=== PATIENT | male | born 1955 | race Caucasian/White ===

== ENCOUNTER → 2021-12-10 10:08 | Outpatient (CLI) | payer MEDICARE, OTHER, SELFPAY ==
--- NOTE | 2021-12-10 | CA_ITS ---
APPROVED REPORT Exam: Exercise Treadmill Technologist: Oumou Teague Ht: 6 ft 1 in Wt: 190 lbs BSA: 2.11 m2 HR: 79 bpm BP: 203/83 mmHg Indications: Palpitations, ABNORMAL EKG Stress Test Details Test: Abhay HR Resting HR: 79 bpm Max Heart Rate (APMHR): 152.125185 bpm Max HR Achieved: 160 bpm Target HR (85% APMHR): 129.652834 bpm % of APMHR: 105.26 Recovery HR: 87 bpm BP Resting BP: 203.0/83.0 mmHg Max BP: 218.0/86.0 mmHg Recovery BP: 166.0/85.0 mmHg ECG Resting ECG: Normal sinus rhythm, PVCs (frequent) Clinical Exercise duration: 08:00 min Highest Stage Achieved: Exercise capacity: 10.1 METs Stress ECG Conclusion Patient exercised 8:00 on Abhay Protocol. Test stopped due to shortness of air, hypertension. Symptoms: No chest pain. Arrhythmias/Ectopy: Frequent multifocal PVCs, numerous couplets, occasional triplet, one 7 beat run of ventricular tachycardia. ST-T Changes: Allowing for motion artifact and frequent ventricular ectopy, the ST response to exercise appears within normal. Conclusion: Frequent multifocal ventricular ectopy with one 7 beat run of ventricular tachycardia. Myoview images reported separately. Test Summary REST . . . . . . . Sitting REST . . . . . . . Standing REST 04:55 0.0 0.0 79 . 203/ 83 . . Stage 1 01:00 10.0 1.7 91 . . . . Stage 1 02:00 10.0 1.7 93 . . . . Stage 1 03:00 10.0 1.7 107 . 210/ 85 . . Stage 2 01:00 12.0 2.5 108 . . . . Stage 2 02:00 12.0 2.5 123 . . . . Stage 2 . . . . . . . Myoview Injected Stage 2 03:00 12.0 2.5 127 . 218/ 86 . . Stage 3 01:00 14.0 3.4 141 . . . . Stage 3 02:00 14.0 3.4 138 . . . Stop exercise at 08:00 RECOVERY 01:00 0.0 0.0 118 . 215/ 75 . . RECOVERY 02:00 0.0 0.0 80 . 215/ 75 . . RECOVERY 03:00 0.0 0.0 88 . 215/ 75 . . RECOVERY 04:00 0.0 0.0 80 . 180/ 93 . . RECOVERY 05:00 0.0 0.0 88 . 180/ 93 . . RECOVERY 06:00 0.0 0.0 83 . 180/ 93 . . RECOVERY 07:00 0.0 0.0 79 . 191/ 98 . . RECOVERY 07:42 0.0 0.0 74 . 166/ 85 . . Electronically signed by : Eric Garrett MD 12/10/2021 20:44:45
--- NOTE | 2021-12-10 | CA_ITS ---
APPROVED REPORT EXAM: Comprehensive 2D, Doppler, and color-flow Echocardiogram Automotive Designer: Vannesa High CRT Ht: 6 ft 1 in Wt: 190lbs BSA: 2.11 BP: 158/95 mmHg Indications: Abnormal ECG, Chest Pain, Palpitations 2D Dimensions LVOT 2.17 cm (M/F) 1.5-2.5 LA Volume 48.80 mL LA Volume Index 23.10 mL/m2 (M/F) 16-34 M-Mode Dimensions RVDd 3.34 cm (0.9-2.6) LA Diam 3.91 cm (1.9-4.0) LVDd 5.06 cm (3.5-5.7) Ao Diam 4.00 cm (2.0-3.7) LVDs 3.19 cm (3.5-5.7) IVSd 1.56 cm (0.6-1.1) PWd 1.16 cm (0.6-1.1) EF (Teich) 66.60% FS 37.00% EDV (Teich) 121.60 mL TAPSE 2.33 (<1.7) ESV (Teich) 40.60 mL LV Diastology E Decel Time 197.00 (160-240 msec) E/A Ratio 0.79 MED E' 7.70 (< 7 cm/sec) MED A' 14.00 cm/s E'/MED E' Ratio 7.34 (>14) LAT E' 11.20 (<10 cm/sec) LAT A' 13.10 cm/s E/LAT E' Ratio 5.04 (>14) Aortic Valve AO Peak GR. 5.90 mmHg Mitral Valve MV E Max Malcolm. 56.00 (40-130 cm/s) MV A Velocity 72.00 (40-130 cm/s) E/A Ratio 0.79 MV Decel. Time 197.00 (160-240 ms) MV PHT 58.00 ms Pulmonary Valve PV Peak Velocity 175.00 (50-150 cm/s) Tricuspid Valve TR P. Velocity 314.00 cm/s RAP Estimate 10.00 mmHg RVSP 49.50 mmHg Left Ventricle Left atrium is mildly enlarged, left ventricle is normal size, mild concentric left ventricular hypertrophy, visually estimated ejection fraction 55% with no regional wall motion abnormality, grade 1 diastolic dysfunction seen without tissue Doppler evidence of raise left atrial pressure. Right Ventricle Right atrium and right ventricle are normal size and contractility. Aortic Valve Aortic valve is minimally thickened and fibrosed. There is no aortic stenosis or aortic insufficiency. Mitral Valve Mitral valve grossly normal, there is trace mitral regurgitation. Tricuspid Valve Tricuspid grossly normal, there is trace tricuspid regurgitation. Pulmonic Valve Pulmonic valve is poorly visualized. Great Vessels Aortic root is normal size. Inferior vena cava is poorly visualized. Pericardium No significant pericardial effusion noted. Conclusion 1. Mildly enlarged left atrium, normal left ventricular size, mild concentric left ventricular hypertrophy, visually estimated ejection fraction 55% with no regional wall motion abnormality, grade 1 diastolic dysfunction without tissue Doppler evidence of raise left atrial pressure. 2. Trace mitral and tricuspid regurgitation. 3. No significant pericardial effusion noted. 4. Inferior vena cava is poorly visualized. Electronically signed by : Eric Garrett MD 12/10/2021 20:24:32
--- NOTE | 2021-12-10 10:59 | NM_ITS ---
APPROVED REPORT Exam: Nuclear Stress Test Indication: Abnormal EKG, Chest pain, Palpitations, HTN Patient Location: Outpatient Stress Tech: Oumou Teague NM Tech:Mago Holden, ARRT, RT (R)(N) Ht: 6 ft 1 in Wt: 190 lbs HR: 79 bpm BP: 203/83 mmHg BSA: 2.11 m2 BMI: 25.0 History: Abnormal EKG, Chest pain, Palpitations, HTN Procedure: Patient exercised on Abhay protocol 8:00 minutes and sec, resting heart rate 79 bpm, resting blood pressure 203/83 mmHg, with exercise maximum heart rate achived was 160 bpm which is 105 % of the maximum predicted heart rate and blood pressure was 218/86 mmHg. Test was stopped due to SOA. Patient denied any complaint of chest pain. Patient has good exercise capacity, achieved 10.1 METs of workload on treadmill, the blood pressure response to exercise was Hypertensive. Electrocardiogram Resting electrocardiogram showed sinus rhythm, with exercise there is less than 1.[address] segment depression noted from the baseline EKG. The EKG portion of the exercise Myoview is negative for ischemia, however during the study 7 beat of nonsustained ventricular tachycardia was also seen. Cardiac Stress and Resting SPECT Images: Cardiac Stress and Resting SPECT images were obtained using technetium 99m Myoview 32.7 mCi stress and 10.43 mCi at rest. Gated SPECT for analysis of segmental wall motion and calculation of the ejection fraction also done. Prone images were also obtained. Cardiac stress and rest SPECT images show moderate sized area of fixed defect involving the inferior wall, likely secondary to nontransmural myocardial scarring, no significant reversible ischemia seen, computer derived ejection fraction is 51% with moderate inferior wall hypokinesis, right ventricle is mildly enlarged with normal contractility. Conclusion: 1. The EKG portion of the exercise Myoview is negative for ischemia, patient good exercise capacity achieved 10.1 METs of workload treadmill, the blood pressure response to exercise was hypertensive, there was no exercise-induced chest discomfort. 2. Scintigraphic evidence of nontransmural myocardial scarring involving the inferior wall, computer derived ejection fraction 51% with segmental wall motion abnormality described above, right ventricle is mildly enlarged with normal contractility. 3. Abnormal exercise Myoview study. Electronically signed by : Eric Garrett MD 12/10/2021 21:06:17
== END ==
PROVIDERS: PCP Family Medicine; Visit Provider Family Medicine
DX: R55 Syncope and collapse (principal); I49.3 Ventricular premature depolarization; R00.2 Palpitations; R94.31 Abnormal electrocardiogram [ECG] [EKG]
CPT/HCPCS: 78452; 93017; 93306; A9502

== ENCOUNTER → 2021-12-23 08:03 | Outpatient (CLI) | payer MEDICARE, OTHER, SELFPAY ==
[2021-12-23 09:14] LABS: Basophils # 0.1 K/mm3 (0-0.2); Basophils % 1.3 % (0.1-2.0); Eosinophils # 0.3 K/mm3 (0.0-0.4); Eosinophils % 2.3 % (0.1-12.0); Hematocrit 46.9 % (42.0-52.0); Hemoglobin 15.3 g/dL (14.1-18.0); Lymphocytes % 36.7 % (10-50); Mean Corpuscular HGB Conc 32.6 g/dL (31.8-35.4); Mean Corpuscular Hemoglobin 30.9 pg (27.0-31.2); Mean Corpuscular Volume 94.7 fl (80-94); Monocytes # 0.7 K/mm3 (0.1-1.0); Monocytes % 6.6 % (1.7-9.3); Neutrophils # 5.8 K/mm3 (1.8-7.8); Neutrophils % 53.1 % (37.0-80.0); Platelet Count 349 K/mm3 (142-424); Red Blood Count 4.96 M/mm3 (4.60-6.20); Red Cell Distribution Width 13.7 % (11.5-17.5)
[2021-12-23 09:55] LABS: Chloride 99 mmol/L (98-107); Potassium 4.1 mmoL/L (3.5-5.1); Sodium 138 mmol/L (136-145)
[2021-12-23 09:58] LABS: Anion Gap 13.1 mEq/L (5-15); Blood Urea Nitrogen 11 mg/dl (9-20); Carbon Dioxide 30 mmol/L (22.0-30.0); Estimated Glomerular Filt Rate 96 ml/min (>60); GFR (African American) 116 ML/MIN (>60)
[2021-12-23 09:59] LABS: Calcium 9.3 mg/dl (8.4-10.2); Glucose 117 mg/dl (74-100)
== END ==
PROVIDERS: PCP Family Medicine; Visit Provider Nurse Practitioner Family
DX: E78.5 Hyperlipidemia, unspecified (principal); I10 Essential (primary) hypertension; I20.8 Other forms of angina pectoris; R06.00 Dyspnea, unspecified; R94.31 Abnormal electrocardiogram [ECG] [EKG]; R94.39 Abnormal result of other cardiovascular function study; I63.9 Cerebral infarction, unspecified
CPT/HCPCS: 36415; 80048; 85025; C9803; U0003; U0005

== ENCOUNTER 2021-12-24 08:40 | Day surgery (SDC) | payer MEDICARE, OTHER, SELFPAY ==
[2021-12-24] VITALS (13 sets, daily range): BP systolic 112–193; BP diastolic 67–105; PULSE 56–89; RESP 18; TEMP 36.9; O2SAT 93–98; BMI 24.0
--- NOTE | 2021-12-24 07:10 | IR_ITS ---
APPROVED REPORT Patient Location: Outpatient Glass Designer: JOSÉ Christy RT (R) PROCEDURES Left heart catheterization Left ventriculogram Selective coronary angiogram Drug-eluting stent deployment to the proximal LAD INDICATION Angina pectoris, Coronary artery disease, High risk abnormal Myoview Informed consent was obtained prior to the procedure. COMPLICATIONS None Estimated Blood Loss: Less than 10 mls TECHNIQUE One percent lidocaine used to anesthetize the right anterior aspect of the wrist. The right radial artery was accessed via the Seldinger technique. A 6 Salvadorean sheath was placed in the right radial artery. 2.5 mg of verapamil, 800 mcg of nitroglycerin, 1mg Lidocaine and 5000 U Heparin were given through the arterial sheath. The PAPA catheter was also used to perform left heart catheterization, left ventriculogram and selective coronary angiogram. At the end the diagnostic angiogram therapeutic heparin was administered giving a therapeutic ACT and a Choice PT extra-support wire was placed distally in the LAD. A 3.5 x 34 mm resolute Shawn stent was deployed at 16 elías reducing the stenosis. A 4 mm x 8 mm balloon was then placed in the proximal portion of the stent and deployed at 22 elías to post dilate. FEDERICO-3 flow was present before and after the procedure. There was jailing of the first diagonal artery however this was still accompanied by FEDERICO-3 flow therefore the apparatus was removed the sheath was removed and hemostasis was achieved using TR banding patient was transferred to the postop putting her stable condition ANGIOGRAPHIC RESULTS The left main artery Normal The left anterior descending artery Proximal 60% stenosis followed by additional proximal 70% stenosis. There is a large first diagonal artery which originates the high proximal LAD which is free of disease however after stenting there was greater than 90% jailing still accompanied by FEDERICO-3 flow The circumflex artery Is large and codominant with mild diffuse 10% luminal irregularities The right coronary artery Has proximal and mid vessel diffuse 30 to 40% stenoses with a distal 30% stenosis The ENRIQUEZ ventriculogram reveals Preserved at 55% The left ventricular end-diastolic pressure 10 mmHg IMPRESSION Severe proximal LAD disease which correlated with high risk abnormal Myoview Successful stenting of proximal LAD severe tandem lesions reduced to 0% with 1 drug-eluting stent Preserved ejection fraction Normal left ventricular end-diastolic pressure Angiographic jailing of the first diagonal artery accompanied by FEDERICO-3 flow PLAN 1. Dual antiplatelet therapy 2. LDL less than 55 3. Avoidance of tobacco products 4. Cardiac rehabilitation 5. Risk factor modification 6. The first diagonal artery will be managed medically given the FEDERICO-3 flow. Should patient develop recalcitrant angina pectoris refractory to antianginal medications only then what I consider bifurcating this lesion. Typically these lesions remain open and do not require any form of instrumentation Electronically signed by : Darrius Brady MD 12/24/2021 10:18:11
[2021-12-24 11:36] LABS: CATHL Activated Clotting Time > 400 SEC (74-125)
--- NOTE | 2021-12-24 13:03 | HMH.PHACLD ---
Migel Fraga has received discharge medication counseling on the following medications: ASPIRIN METOPROLOL ROSUVASTATIN BRILINTA LISINOPRIL PATIENT VERBALIZED UNDERSTANDING AND HAD NO QUESTIONS AT THIS TIME. -ANASTASIA LAWRENCE, MOOKIED
== END 2021-12-24 13:57 | disposition home or self-care (01) ==
LOC: CATHLAB 08:41
PROVIDERS: PCP Family Medicine; Visit Provider Internal Medicine
DX: E78.5 Hyperlipidemia, unspecified (principal); R06.00 Dyspnea, unspecified; R94.31 Abnormal electrocardiogram [ECG] [EKG]; R94.39 Abnormal result of other cardiovascular function study; Z79.899 Other long term (current) drug therapy; I25.118 Atherosclerotic heart disease of native coronary artery with other forms of angina pectoris; I10 Essential (primary) hypertension
CPT/HCPCS: 85347; 92928; 93458; 99152; C1725; C1769; C1876; C9600; J1644; J2405; Q9967

== ENCOUNTER 2022-01-09 08:29 | Outpatient (RCR) | payer MEDICARE, OTHER, SELFPAY | END 2022-02-11 14:32 | disposition home or self-care (01) | LOC: PT 08:29 | PROVIDERS: Visit Provider Internal Medicine | DX: I25.10 Atherosclerotic heart disease of native coronary artery without angina pectoris (principal); Z95.5 Presence of coronary angioplasty implant and graft | CPT/HCPCS: 93798 ==

== ENCOUNTER → 2022-07-28 10:36 | Outpatient (CLI) | payer MEDICARE, OTHER, SELFPAY ==
[2022-07-28 11:04] LABS: Basophils # 0.2 K/mm3 (0-0.2); Basophils % 1.9 % (0.1-2.0); Eosinophils # 0.2 K/mm3 (0.0-0.4); Eosinophils % 1.9 % (0.1-12.0); Hematocrit 45.7 % (42.0-52.0); Hemoglobin 14.8 g/dL (14.1-18.0); Lymphocytes # 3.7 K/mm3 (0.7-4.5); Lymphocytes % 36.9 % (10-50); Mean Corpuscular HGB Conc 32.5 g/dL (31.8-35.4); Mean Corpuscular Hemoglobin 30.9 pg (27.0-31.2); Mean Corpuscular Volume 95.2 fl (80-94); Mean Platelet Volume 8.4 fl (7.4-10.4); Monocytes # 0.5 K/mm3 (0.1-1.0); Monocytes % 5.3 % (1.7-9.3); Neutrophils # 5.4 K/mm3 (1.8-7.8); Platelet Count 317 K/mm3 (142-424); Red Cell Distribution Width 13.7 % (11.5-17.5); White Blood Count 10.1 K/mm3 (4.8-10.8)
[2022-07-28 11:30] LABS: Chloride 104 mmol/L (98-107); Sodium 142 mmol/L (136-145)
[2022-07-28 11:31] LABS: Potassium 4.1 mmoL/L (3.5-5.1)
[2022-07-28 11:33] LABS: Alanine Aminotransferase 21 U/L (12-78); Albumin Level 4.4 g/dl (3.5-5.0); Albumin/Globulin Ratio 1.2 (1.1-1.8); Alkaline Phosphatase 84 U/L (38-126); Anion Gap 11.1 mEq/L (5-15); Aspartate Amino Transferase 37 U/L (17-59); Bilirubin,Total 0.3 mg/dl (0.2-1.3); Blood Urea Nitrogen 12 mg/dl (9-20); Carbon Dioxide 31 mmol/L (22.0-30.0); Cholesterol 173 mg/dl (140-200); Estimated Glomerular Filt Rate 96 ml/min (>60); GFR (African American) 116 ML/MIN (>60); Globulin 3.6 g/dL (1.3-3.2); Triglycerides 100 mg/dl (30-150); VLDL Cholesterol 20 mg/dL (0-40)
[2022-07-28 11:34] LABS: Calcium 8.6 mg/dl (8.4-10.2); Chol/HDL Ratio 3.8 (1-3.5); Glucose 109 mg/dl (74-100); HDL Cholesterol 46 mg/dl (40-60)
[2022-07-28 11:44] LABS: Direct LDL Cholesterol 86.79 mg/dL (100-129)
[2022-07-28 12:05] LABS: Thyroid Stimulating Hormone 1.77 uIU/mL (0.465-4.68)
[2022-07-28 12:20] LABS: Uric Acid 4.4 mg/dl (3.5-8.5)
[2022-07-28 12:52] LABS: Prostate Specific Ag Screen 1.3 ng/ml (0.0-4.0)
== END ==
PROVIDERS: PCP Family Medicine; Visit Provider Family Medicine
DX: I10 Essential (primary) hypertension (principal); I25.10 Atherosclerotic heart disease of native coronary artery without angina pectoris; E78.2 Mixed hyperlipidemia; Z12.5 Encounter for screening for malignant neoplasm of prostate
CPT/HCPCS: 36415; 80053; 80061; 84443; 84550; 85025; G0103

== ENCOUNTER → 2022-08-26 09:06 | Outpatient (POV) | payer MEDICARE, OTHER, SELFPAY | PROVIDERS: Visit Provider Dermatology | DX: Z00.00 Encounter for general adult medical examination without abnormal findings (principal) ==

== ENCOUNTER → 2023-04-07 08:16 | Outpatient (POV) | payer MEDICARE, OTHER, SELFPAY | PROVIDERS: Visit Provider Dermatology | DX: Z00.00 Encounter for general adult medical examination without abnormal findings (principal) ==

== ENCOUNTER → 2023-07-21 08:41 | Outpatient (POV) | payer MEDICARE, OTHER, SELFPAY | PROVIDERS: Visit Provider Dermatology | DX: Z00.00 Encounter for general adult medical examination without abnormal findings (principal) ==

== ENCOUNTER → 2023-10-19 02:00 | Outpatient (CLI) | payer MEDICARE, OTHER, SELFPAY ==
[2023-10-19 18:01] LABS: Basophils # 0.1 K/mm3 (0-0.2); Basophils % 0.5 % (0.1-2.0); Eosinophils # 0.1 K/mm3 (0.0-0.4); Eosinophils % 1.2 % (0.1-12.0); Hemoglobin 16.1 g/dL (14.1-18.0); Lymphocytes # 2.5 K/mm3 (0.7-4.5); Lymphocytes % 28.2 % (10-50); Mean Corpuscular HGB Conc 33.5 g/dL (31.8-35.4); Mean Corpuscular Hemoglobin 31.5 pg (27.0-31.2); Mean Corpuscular Volume 94.1 fl (80-94); Mean Platelet Volume 9.7 fl (7.4-10.4); Monocytes # 0.7 K/mm3 (0.1-1.0); Monocytes % 7.7 % (1.7-9.3); Neutrophils # 5.5 K/mm3 (1.8-7.8); Neutrophils % 62.4 % (37.0-80.0); Platelet Count 302 K/mm3 (142-424); Red Blood Count 5.11 M/mm3 (4.60-6.20); Red Cell Distribution Width 13.3 % (11.5-17.5); White Blood Count 8.7 K/mm3 (4.8-10.8)
[2023-10-19 18:41] LABS: Alanine Aminotransferase 21 U/L (12-78); Albumin Level 4.4 g/dl (3.5-5.0); Alkaline Phosphatase 93 U/L (38-126); Anion Gap 9.1 mEq/L (5-15); Aspartate Amino Transferase 32 U/L (17-59); Bilirubin,Total 0.3 mg/dl (0.2-1.3); Blood Urea Nitrogen 11 mg/dl (9-20); Calcium 8.7 mg/dl (8.4-10.2); Carbon Dioxide 30 mmol/L (22.0-30.0); Chloride 103 mmol/L (98-107); Chol/HDL Ratio 6.8 (1-3.5); Cholesterol 230 mg/dl (140-200); Estimated Glomerular Filt Rate 83 ml/min (>60); GFR (African American) 101 ML/MIN (>60); Globulin 4.3 g/dL (1.3-3.2); Glucose 107 mg/dl (74-100); HDL Cholesterol 34 mg/dl (40-60); Microalbumin < 6.000 mg/L (0-16.7); Potassium 4.1 mmoL/L (3.5-5.1); Sodium 138 mmol/L (136-145); Total Protein,Serum 8.7 g/dl (6.3-8.2); Triglycerides 113 mg/dl (30-150); VLDL Cholesterol 23 mg/dL (0-40)
[2023-10-19 19:01] LABS: Creatinine,Urine Random 52 mg/dL (Not Estab.)
[2023-10-19 19:11] LABS: Thyroid Stimulating Hormone 3.03 uIU/mL (0.465-4.68)
== END ==
PROVIDERS: PCP Nurse Practitioner; Visit Provider Nurse Practitioner
DX: E78.5 Hyperlipidemia, unspecified (principal); I10 Essential (primary) hypertension; R06.00 Dyspnea, unspecified
CPT/HCPCS: 80053; 80061; 82043; 82570; 84443; 85025

== ENCOUNTER 2024-02-16 20:06 | Outpatient (CLI) | payer MEDICARE, OTHER, SELFPAY ==
[2024-02-16 18:46] LABS: Alanine Aminotransferase 20 U/L (12-78); Albumin Level 4.3 g/dl (3.5-5.0); Albumin/Globulin Ratio 1.1 (1.1-1.8); Alkaline Phosphatase 89 U/L (38-126); Anion Gap 10.2 mEq/L (5-15); Aspartate Amino Transferase 41 U/L (17-59); Bilirubin,Total 0.4 mg/dl (0.2-1.3); Blood Urea Nitrogen 14 mg/dl (9-20); Calcium 9.3 mg/dl (8.4-10.2); Carbon Dioxide 29 mmol/L (22.0-30.0); Chloride 105 mmol/L (98-107); Chol/HDL Ratio 8.3 (1-3.5); Cholesterol 264 mg/dl (140-200); Estimated Glomerular Filt Rate 83 ml/min (>60); GFR (African American) 101 ML/MIN (>60); Globulin 3.9 g/dL (1.3-3.2); Glucose 129 mg/dl (74-100); HDL Cholesterol 32 mg/dl (40-60); Potassium 4.2 mmoL/L (3.5-5.1); Sodium 140 mmol/L (136-145); Total Protein,Serum 8.2 g/dl (6.3-8.2); Triglycerides 134 mg/dl (30-150); VLDL Cholesterol 27 mg/dL (0-40)
[2024-02-16 18:57] LABS: Direct LDL Cholesterol 165.04 mg/dL (100-129)
[2024-02-16 19:17] LABS: Prostate Specific Ag Screen 1.5 ng/ml (0.0-4.0)
[2024-02-16 19:39] LABS: Hemoglobin A1C 5.5 % (4.0-6.0)
== END 2024-02-16 23:59 ==
LOC: LAB.DROPOF 20:06
PROVIDERS: PCP Nurse Practitioner; Visit Provider Nurse Practitioner
DX: Z12.5 Encounter for screening for malignant neoplasm of prostate (principal); I10 Essential (primary) hypertension; R73.01 Impaired fasting glucose; E78.2 Mixed hyperlipidemia; Z78.9 Other specified health status; Z79.899 Other long term (current) drug therapy
CPT/HCPCS: 80053; 80061; 83036; G0103

== ENCOUNTER 2024-04-14 08:56 | Observation (INO) | payer MEDICARE, OTHER, SELFPAY ==
[2024-04-14 09:00] VITALS: BP 157/96; PULSE 87; RESP 20; TEMP 36.8; O2SAT 95; BMI 32.1
[2024-04-14 09:01] VITALS: BP 167/107; PULSE 76; O2SAT 96
--- NOTE | 2024-04-14 09:01 | ECG_ITS ---
APPROVED REPORT Exam: Resting ECG HR:149 bpm ECG Measurements Heart Rate 149 AXES QRSd 98 QRS -74 QT 301 T 74 QTc 386 Conclusion ATRIAL FLUTTER/TACHYCARDIA WITH RAPID VENTRICULAR RESPONSE PATTERN CONSISTENT WITH PULMONARY DISEASE Nonspecific ST/T wave changes Electronically signed by : GRETA JIMENEZ, 04/14/2024 16:08:59
--- NOTE | 2024-04-14 09:05 | XR_ITS ---
FINAL REPORT CLINICAL HISTORY: tachycardia FINDINGS: A single view of the chest was obtained. The heart is normal in size. The mediastinum is unremarkable. Mild chronic changes are seen at the lung bases. There is no acute pulmonary abnormality. There is no pleural effusion. There is no pneumothorax. There is no acute osseous abnormality. IMPRESSION: No acute cardiopulmonary process. Reviewed, Interpreted and Dictated by Evaristo Bautista MD Transcribed by Abimbola Ricks Authenticated and [facility]
[2024-04-14 09:16] LABS: Basophils # 0.1 K/mm3 (0-0.2); Eosinophils # 0.1 K/mm3 (0.0-0.4); Eosinophils % 1.4 % (0.1-12.0); Hematocrit 49.5 % (42.0-52.0); Hemoglobin 16.4 g/dL (14.1-18.0); Lymphocytes # 2.8 K/mm3 (0.7-4.5); Lymphocytes % 34.7 % (10-50); Mean Corpuscular HGB Conc 33.2 g/dL (31.8-35.4); Mean Corpuscular Hemoglobin 31.4 pg (27.0-31.2); Mean Corpuscular Volume 94.7 fl (80-94); Mean Platelet Volume 7.9 fl (7.4-10.4); Monocytes # 0.5 K/mm3 (0.1-1.0); Monocytes % 5.6 % (1.7-9.3); Neutrophils # 4.7 K/mm3 (1.8-7.8); Neutrophils % 57.3 % (37.0-80.0); Platelet Count 327 K/mm3 (142-424); Red Blood Count 5.23 M/mm3 (4.60-6.20); White Blood Count 8.2 K/mm3 (4.8-10.8)
--- NOTE | 2024-04-14 09:18 | HMH.EDGENADL ---
Discharge Plan Disposition Patient Disposition: Admitted Clinical Impressions Clinical Impression: Atrial flutter with rapid ventricular response Discharge ED Provider: [facility] Adult HPI General Chief complaint: Arrhythmia/Palpitations Stated complaint: Elevated Heart Rate-Sent by [employer] [facility] Time Seen by Provider: 04/14/24 09:02 History of Present Illness HPI narrative: This patient is a 68-year-old male with a history of hypertension, hyperlipidemia, CAD, and anxiety presenting to the emergency department for evaluation from cardiology clinic with concern for high heart rate. According to the patient, he had been in his usual state of health until last few days, when he started experiencing a sinus infection. He notes that he started taking [id number] nasal spray and a pill for sinuses. He is not sure exactly what this was. He notes no other concerns, such as chest pain, shortness of breath, palpitations, or other issues. He checks his heart rate and blood pressure once a day, and his heart rate is typically in the 60-80 range. Today, his heart rate was 111. He went to cardiology clinic, where EKG was obtained that demonstrated a heart rate in the 140s. EKG their read SVT, so the patient was sent to the ED for further evaluation and management. Per the patient, he has no history of high heart rate. He does not take any medications for heart rate control, and he is not on any blood thinners. He does take daily aspirin. No history of blood clots or clotting disorders. I reviewed cardiology note and noted that the patient has otherwise been stable. Related Data Home Medications Medication Instructions Recorded Confirmed aspirin 81 mg tablet,delayed 81 mg PO DAILY 04/14/24 04/14/24 release Previous Rx's Medication Instructions Recorded coenzyme Q10 100 mg capsule 100 mg PO DAILY #30 caps 01/18/24 sertraline 50 mg tablet 50 mg PO DAILY 90 days #90 tabs 02/16/24 Allergies Allergy/AdvReac Type Severity Reaction Status Date / Time rosuvastatin AdvReac Verified 04/14/24 08:41 atorvastatin AdvReac Mild myalgia Uncoded 04/14/24 08:41 [facility] Disclaimer: The information contained in this section may have been updated after the patient was seen, as this information can be updated by other users. Medical History Statin intolerance IFG (impaired fasting glucose) Anxiety Cardiac arrhythmia Left knee pain [place] of foot Diastolic dysfunction HTN (hypertension) History of skin cancer CAD (coronary artery disease) PVC (premature ventricular contraction) HLD (hyperlipidemia) Atypical angina Abnormal electrocardiography Abnormal cardiovascular stress test Dyspnea Surgical History History of heart artery stent History of hernia repair Family History Other Cancer Social History Smoking Status: Never smoker second hand exposure: No alcohol intake: never current occupational status: retired Travel in the last 8 weeks: None household members: spouse housing: house current occupational exposures/hazards: No ROS Obtained: Yes All systems reviewed & no additional complaints except as documented Physical Exam General General appearance: alert and in no apparent distress Head Head exam: atraumatic and normocephalic Eye Eye exam: Present normal appearance, PERRL and EOMI ENT ENT exam: Present normal exam, normal oropharynx, mucous membranes moist and normal external ear exam Neck Neck exam: Present normal inspection, full ROM and trachea midline; Absent tenderness Chest Chest inspection: Present normal inspection and symmetric chest wall rise; Absent tenderness Respiratory Respiratory exam: Present normal lung sounds bilaterally; Absent respiratory distress, wheezes, stridor or accessory muscle use Cardiovascular Cardiovascular exam: Present normal rhythm and tachycardia Abdominal Exam Abdominal exam: Present soft; Absent distention, tenderness or guarding Extremities Exam Extremities exam: Present normal inspection, full ROM and normal capillary refill; Absent tenderness or edema Back Exam Back exam: Present normal inspection and full ROM; Absent tenderness Neurological Exam Neurological exam: Present alert, oriented X3, CN II-XII intact and normal gait; Absent motor sensory deficit Psychiatric Psychiatric exam: Present normal affect and normal mood Skin Skin exam: Present warm and dry Medical Decision Making Medical Records Medical records reviewed: Yes I reviewed the patient's medical records. Griffin Inquiry Pt receiving controlled substance: No Vital Signs: 04/14/24 09:00 04/14/24 09:01 04/14/24 09:31 Temperature 98.2 F Temperature Source Oral Pulse Rate 76 77 Pulse Rate [Left Radial] 87 Respiratory Rate 20 15 Blood Pressure 167/107 H 153/100 H Blood Pressure [Right Arm] 157/96 H Blood Pressure Mean [Right Arm] 116 02 Sat by Pulse Oximetry 95 96 96 Oxygen Delivery Method Room Air Room Air Room Air 04/14/24 09:54 Temperature Temperature Source Pulse Rate 63 Pulse Rate [Left Radial] Respiratory Rate 17 Blood Pressure 157/96 H Blood Pressure [Right Arm] Blood Pressure Mean [Right Arm] 02 Sat by Pulse Oximetry 98 Oxygen Delivery Method Room Air Lab Data Lab results reviewed: Yes I reviewed the patient's lab results. Lab Results 04/14/24 09:03: WBC 8.2, RBC 5.23, Hgb 16.4, Hct 49.5, MCV 94.7 H, MCH 31.4 H, MCHC 33.2, RDW 14.0, Plt Count 327, MPV 7.9, Neut % (Auto) 57.3, Lymph % (Auto) 34.7, [place] % (Auto) 5.6, Eos % (Auto) 1.4, Baso % (Auto) 1.0, Neut # (Auto) 4.7, Lymph # (Auto) 2.8, [place] # (Auto) 0.5, Eos # (Auto) 0.1, Baso # (Auto) 0.1, PT 10.5, INR 0.97, APTT 29.6, Sodium 140, Potassium 4.0, Chloride 103, Carbon Dioxide 28, Anion Gap 13.0, BUN 14, Creatinine 1.00, Estimated GFR 74, Est GFR ( Amer) 89, Glucose 130 H, Calcium 9.4, Magnesium 1.8, Total Bilirubin 0.4, AST 38, ALT 23, Alkaline Phosphatase 86, Troponin I < 0.01, NT-Pro-B Natriuret Pep 1630 H, Total Protein 9.6 H, Albumin 4.6, Globulin 5.0 H, Albumin/Globulin Ratio 0.9 L, TSH 2.46, Thyroxine (T4) 10.2 04/14/24 09:03 04/14/24 09:03 Orders (Tests/Meds): ED MEDICATIONS Discontinued Medications Generic Name Dose Route Start Last Admin Trade Name Freq PRN Reason Stop Dose Admin Diltiazem HCl 10 mg 04/14/24 09:12 04/14/24 09:25 Diltiazem 25mg/5ml Vial IV 04/14/24 09:13 10 mg ONCE ONE Administration Diltiazem HCl 15 mg 04/14/24 09:42 04/14/24 09:45 Diltiazem 25mg/5ml Vial IV 04/14/24 09:43 15 mg ONCE ONE Administration Diltiazem HCl 120 mg 04/14/24 09:42 04/14/24 09:45 Diltiazem Er 120mg Capsule PO 04/14/24 09:43 120 mg ONCE ONE Administration Lactated Ringer's 1,000 mls @ 999 mls/hr 04/14/24 09:12 04/14/24 09:26 Lactated Ringer's 1000 Ml Bag IV 04/14/24 10:12 999 mls/hr .Q1H1M ONE Administration ORDERS Category Date Time Status Cardiology Consult [Consult to Cardiology] [CONS] Cons 04/14/24 10:14 Active Routine CXR --portable [XR chest portable] Stat Exams 04/14/24 09:05 Completed Activated Partial Thrombo Time Stat Lab 04/14/24 09:03 Completed Complete Blood Count Auto Diff Stat Lab 04/14/24 09:03 Completed Comprehensive Metabolic Panel Stat Lab 04/14/24 09:03 Completed Magnesium Stat Lab 04/14/24 09:03 Completed NT Pro Brain Natriuretic Pep. Stat Lab 04/14/24 09:03 Completed Prothrombin Time INR Stat Lab 04/14/24 09:03 Completed T4 (Thyroxine) Stat Lab 04/14/24 09:03 Completed Thyroid Stimulating Hormone Stat Lab 04/14/24 09:03 Completed Troponin I Q3H Lab 04/14/24 12:15 Ordered Troponin I Q3H Lab 04/14/24 15:15 Ordered Troponin I Stat Lab 04/14/24 09:03 Completed ECG Data Tracing #1: I reviewed this ECG and interpreted as documented below: Narrow complex atrial flutter/tachycardia with a ventricular rate of [address]/T wave changes without acute STEMI. ECG initial impression date: 04/14/24 ECG initial impression time: 09:02 Tracing #2: I reviewed this ECG and interpreted as documented below: Atrial flutter with a ventricular rate of 106 bpm. Frequent PVCs. No acute ST changes concerning for ischemia. ECG initial impression date: 04/14/24 ECG initial impression time: 09:54 Tracing #3: I reviewed this ECG and interpreted as documented below: Atrial flutter with a ventricular rate of 73 bpm. 2-1 conduction. Incomplete right bundle branch block noted. Left anterior fascicular block noted. No acute ST changes concerning for ischemia. ECG initial impression date: 04/14/24 ECG initial impression time: 09:59 Medical Decision Narrative: In summary, this patient is a 68-year-old male presenting to the Emergency Department for evaluation of high heart rate in cardiology clinic. Differential diagnoses considered include but are not limited to atrial flutter, atrial fibrillation, SVT, electrolyte derangements, ACS, dehydration. Ruling out the most morbid conditions drove assessment. It should be noted patient's history includes CAD, hypertension, hyperlipidemia which may or may not be at goal therapy. This complicates all aspects of care by increasing patient's risk for morbidity. I reviewed patient's past medical records and noted cardiology note today with EKG obtained in clinic that read concerning for SVT.. On exam, the patient is resting comfortably in bed in no acute distress. He has a tachycardic but regular rhythm on cardiac telemetry. He is mildly hypertensive. Vital stable. Workup included CBC, CMP, troponin, TSH, T4, magnesium, BNP, chest x-ray, EKG. EKG here concerning for atrial tachycardia/flutter, as I do see P waves. Heart rate in the 140s here. Patient was given a bolus of IV fluids as well as a 10 mg push of IV diltiazem to assess for rate improvement. I independently interpreted stray prior to the radiologist read and noted focal consolidation or pulmonary edema. Please see their read for final interpretation. Labs were obtained that demonstrated mildly elevated BNP without other acute concerns. After administration of 10 mg of IV diltiazem, the patient did not have any change in his heart rate. He was then given 15 mg IV push as well as 120 mg p.o. ER. After this, he is rate controlled with a rate in the 70s to 80s with atrial flutter with a 2-1 conduction on EKG. He does have frequent PVCs. On multiple subsequent reassessments, the patient remained in rate controlled atrial flutter. I had an interactive discussion with cardiology who wants to admit the patient for potential TALIA with cardioversion. Given this, I had an interactive discussion with the hospitalist who admitted him for further evaluation and management. Patient was admitted in stable condition. Critical Care Critical Care Time Critical Care Time: No
[2024-04-14 09:21] LABS: Chloride 103 mmol/L (98-107)
[2024-04-14 09:22] LABS: Sodium 140 mmol/L (136-145)
[2024-04-14 09:23] LABS: Activated Partial Thrombo Time 29.6 seconds (22.8-30.6); INR 0.97 (0.9-1.1); Prothrombin Time 10.5 seconds (10.1-12.5)
[2024-04-14 09:24] LABS: Alanine Aminotransferase 23 U/L (12-78); Aspartate Amino Transferase 38 U/L (17-59); Blood Urea Nitrogen 14 mg/dl (9-20); Estimated Glomerular Filt Rate 74 ml/min (>60); GFR (African American) 89 ML/MIN (>60)
[2024-04-14 09:25] LABS: Albumin Level 4.6 g/dl (3.5-5.0); Albumin/Globulin Ratio 0.9 (1.1-1.8); Alkaline Phosphatase 86 U/L (38-126); Bilirubin,Total 0.4 mg/dl (0.2-1.3); Calcium 9.4 mg/dl (8.4-10.2); Carbon Dioxide 28 mmol/L (22.0-30.0); Glucose 130 mg/dl (74-100); Magnesium 1.8 mg/dl (1.6-2.3); Total Protein,Serum 9.6 g/dl (6.3-8.2)
[2024-04-14] MEDS: dilTIAZem 25MG/5ML VIAL 10 MG IV (09:25)
[2024-04-14] MEDS: LACTATED RINGERS 1000ML 1,000 ML 999 ML IV (09:26)
--- NOTE | 2024-04-14 09:30 | HMH.PHAINT1 ---
Pharmacy Intervention Comments: MEDICATION RECONCILIATION COMPLETED ON PATIENT USING EXTERNAL FILL HISTORY FROM PHARMACY AND LIST FROM CARDIOLOGY OFFICE. -ANASTASIA LAWRENCE, MOOKIED
[2024-04-14 09:31] VITALS: BP 153/100; PULSE 77; RESP 15; O2SAT 96
[2024-04-14 09:34] LABS: NT Pro Brain Natriuretic Pep. 1630 pg/mL (0-125)
[2024-04-14 09:41] LABS: T4 (Thyroxine) 10.2 ug/dl (5.53-11.0)
[2024-04-14] MEDS: dilTIAZem 25MG/5ML VIAL 15 MG IV (09:45)
[2024-04-14] MEDS: dilTIAZem ER 120MG CAPSULE 120 MG PO (09:45)
[2024-04-14 09:51] LABS: Troponin I < 0.01 ng/ml (0.00-0.034)
--- NOTE | 2024-04-14 09:52 | ECG_ITS ---
APPROVED REPORT Exam: Resting ECG HR:106 bpm ECG Measurements Heart Rate 106 AXES QRSd 100 QRS -71 QT 315 T 62 QTc 377 Conclusion ATRIAL FLUTTER/TACHYCARDIA WITH RAPID VENTRICULAR RESPONSE WITH ABERRANT CONDUCTION OR VENTRICULAR PREMATURE COMPLEXES PATTERN CONSISTENT WITH PULMONARY DISEASE LEFT ANTERIOR FASCICULAR BLOCK [QRS AXIS <= -45, QR IN I, RS IN II] ABNORMAL ECG Electronically signed by : GRETA JIMENEZ, 04/14/2024 16:08:41
[2024-04-14 09:54] VITALS: BP 157/96; PULSE 63; RESP 17; O2SAT 98
[2024-04-14 09:55] LABS: Thyroid Stimulating Hormone 2.46 uIU/mL (0.465-4.68)
--- NOTE | 2024-04-14 09:58 | ECG_ITS ---
APPROVED REPORT Exam: Resting ECG HR:73 bpm ECG Measurements Heart Rate 73 AXES QRSd 96 QRS -70 QT 357 T 49 QTc 382 Conclusion ATRIAL FLUTTER/TACHYCARDIA PATTERN CONSISTENT WITH PULMONARY DISEASE INCOMPLETE RIGHT BUNDLE BRANCH BLOCK [90+ ms QRS DURATION, TERMINAL R IN V1/V2, 40+ ms S IN I/aVL/V4/V5/V6] LEFT ANTERIOR FASCICULAR BLOCK [QRS AXIS <= -45, QR IN I, RS IN II] INFERIOR MYOCARDIAL INFARCTION , PROBABLY OLD [40+ ms Q WAVE AND/OR ST/T ABNORMALITY IN II/aVF] ABNORMAL ECG Electronically signed by : GRETA JIMENEZ, 04/14/2024 16:08:29
--- NOTE | 2024-04-14 11:02 | PC.NURSE ---
dr ramos is speaking to dr schwartz.
--- NOTE | 2024-04-14 11:04 | PC.NURSE ---
house aware of admission
--- NOTE | 2024-04-14 11:05 | PC.NURSE ---
HS aware of admission for A-flutter
--- NOTE | 2024-04-14 11:24 | PC.NURSE ---
Report called to 2nd floor
[2024-04-14 11:44] VITALS: BP 157/96; PULSE 91; RESP 18; TEMP 36.6; O2SAT 96
[2024-04-14 12:00] VITALS: BP 165/75; PULSE 71; PULSE 80; RESP 19; TEMP 36.5; O2SAT 97; BMI 24.4
[2024-04-14] MEDS: HEPARIN SODIUM 5,000 UNIT/ML VIAL 5000 UNIT SQ (12:06)
[2024-04-14 13:22] LABS: Troponin I < 0.01 ng/ml (0.00-0.034)
--- NOTE | 2024-04-14 13:28 | EXP.CARD.PN ---
Subjective Subjective Date: 04/14/24 Time: 13:00 Principal diagnosis: Afib with RVR Interval history: Is a 68-year-old white gentleman who presented to cardiology clinic today and was found to have SVT with a rate in the 150s. He was sent to the emergency department where he was treated with oral and IV diltiazem. The patient did slow down to a rate in the 60s and 70s and he was noted to have atrial fibrillation/flutter. He currently remains in atrial fibrillation with rate control in the 70s and 80s. He denies any chest pain or pressure. He denies any shortness of breath or edema. He denies any fever, chills, nausea, vomiting, diarrhea, PND or orthopnea. He states that he does have some dizziness when he stands up or bends over. Exam Data for Last 24 hours Vital signs and Labs for Last 24 Hours: Temp Pulse Resp BP Pulse Ox O2 Del Method 98 F 91 H 18 157/96 H 98 Room Air 04/14/24 11:44 04/14/24 11:44 04/14/24 11:44 04/14/24 11:44 04/14/24 09:54 04/14/24 11:44 Laboratory Results - last 24 hr 04/14/24 09:03: WBC 8.2, RBC 5.23, Hgb 16.4, Hct 49.5, MCV 94.7 H, MCH 31.4 H, MCHC 33.2, RDW 14.0, Plt Count 327, MPV 7.9, Neut % (Auto) 57.3, Lymph % (Auto) 34.7, [place] % (Auto) 5.6, Eos % (Auto) 1.4, Baso % (Auto) 1.0, Neut # (Auto) 4.7, Lymph # (Auto) 2.8, [place] # (Auto) 0.5, Eos # (Auto) 0.1, Baso # (Auto) 0.1, PT 10.5, INR 0.97, APTT 29.6, Sodium 140, Potassium 4.0, Chloride 103, Carbon Dioxide 28, Anion Gap 13.0, BUN 14, Creatinine 1.00, Estimated GFR 74, Est GFR ( Amer) 89, Glucose 130 H, Calcium 9.4, Magnesium 1.8, Total Bilirubin 0.4, AST 38, ALT 23, Alkaline Phosphatase 86, Troponin I < 0.01, NT-Pro-B Natriuret Pep 1630 H, Total Protein 9.6 H, Albumin 4.6, Globulin 5.0 H, Albumin/Globulin Ratio 0.9 L, TSH 2.46, Thyroxine (T4) 10.2 04/14/24 12:30: Troponin I < 0.01 I & O for Last 24 hours: Intake & Output 04/11/24 04/12/24 04/13/24 04/14/24 23:59 23:59 23:59 23:59 Weight 250 lb Constitutional Constitutional: no acute distress and obese *Routine HEENT Exam Head: Present normocephalic and atraumatic ENT: Present mucous membranes moist *Routine Neck Exam Neck: Present supple, full ROM and normal carotid upstroke; Absent JVD, carotid bruit or lymphadenopathy *Routine Respiratory Exam Respiratory: Present CTA bilaterally, normal respiratory effort, able to speak in complete sentences and symmetric chest movement *Routine Cardiovascular Exam Cardiovascular: Present Normal S1, Normal S2 and irregularly irregular; Absent murmur or gallop *Routine Abdominal Exam Abdominal: Present soft and normoactive bowel sounds; Absent tenderness, distended or organomegaly *Routine Extremities Exam Extremities: Present full ROM, pulses intact and normal capillary refill; Absent cyanosis, clubbing or edema *Routine Skin Exam Skin: Present intact and warm; Absent erythema *Routine Neurological Exam Neurological: Present alert, oriented X3 and CN II-XII intact; Absent sensory deficit or motor deficit Routine Psychiatric Exam Psychiatric: Present normal affect Progress Note: A&P Assessment and plan (1) Atrial fibrillation with RVR: Status: Acute (2) CAD (coronary artery disease): Status: Chronic (3) HLD (hyperlipidemia): Status: Chronic (4) HTN (hypertension): Status: Acute Assessment and Plan Assessment and Plan for All Diagnoses:: Plan: 1. The patient was in atrial fibrillation/flutter with RVR. He did rate control with IV diltiazem as well as oral diltiazem. He remains in atrial fibrillation at this time with rate control. 2. Will start him on short acting diltiazem 60 mg p.o. 3 times daily for heart rate control. 3. Due to his atrial fibrillation the patient will need long-term anticoagulation. He does have a [id number] of at least 3. Will start him on Eliquis 5 mg p.o. twice daily for long-term anticoagulation. 4. The patient denies any chest pain or pressure. He has ruled out for an [place]. No plans for invasive left cardiac catheterization at this time. 5. coronary artery disease is likely stable. Continue aspirin 81 mg daily. 6. His blood pressure is elevated. This will likely improve with the addition of diltiazem as mentioned above. 7. His LDL goal is less than 55. He is intolerant to statins. 8. Will give the patient time to see if he converts on his own with medications and to see if he tolerates long-term anticoagulation. He states that he had an issue tolerating Brilinta and Plavix in the past due to bleeding. We do not want to commit him to blood thinners by cardioverting him at this time and not knowing whether or not he will tolerate the blood thinners. 9. The patient is stable for discharge home today from a cardiac standpoint. He will need to follow-up in cardiology clinic next week on an outpatient basis. If he remains in atrial fibrillation at that time then we will set him up for an outpatient TALIA and cardioversion. 10. The patient can be discharged on the following cardiac medications: Aspirin 81 mg daily, diltiazem immediate release 60 mg p.o. 3 times daily, and Eliquis 5 mg p.o. twice daily. Thank you for the opportunity to help participate in the care of this patient. All recommendations and orders are per Dr. Mejia.
[2024-04-14] MEDS: APIXABAN 5MG TABLET 5 MG PO (13:41)
[2024-04-14] MEDS: dilTIAZem 60MG TABLET 60 MG PO (13:41)
--- NOTE | 2024-04-14 14:05 | P.HPDS_ITS ---
General Admission date:: 04/14/24 *Admission Date: 04/14/24 *Chief complaint: Tachycardia *History of present illness: Patient is a 68-year-old male with past medical history of atrial fibrillation who presented to hospital tachycardia. Patient was sent from cardiology office to the emergency department, with the recommendation for possible cardioversion. Patient was admitted to the hospital as rate controlled. On arrival [facility] patient was then recommended by cardiology to be discharged. At time of my evaluation patient did not have chest pain shortness of breath nausea vomiting diarrhea constipation dysuria fevers and chills. Patient appears rate controlled. [facility] Disclaimer: The information contained in this section may have been updated after the patient was seen, as this information can be updated by other users. Medical History (Updated 04/14/24 @ 13:31 by Zahira Peraza APRN) Atrial fibrillation with RVR Statin intolerance IFG (impaired fasting glucose) Anxiety Cardiac arrhythmia Left knee pain Carlock of foot Diastolic dysfunction HTN (hypertension) History of skin cancer CAD (coronary artery disease) PVC (premature ventricular contraction) HLD (hyperlipidemia) Atypical angina Abnormal electrocardiography Abnormal cardiovascular stress test Dyspnea Surgical History History of heart artery stent History of hernia repair Family History Other Cancer Social History (Updated 04/14/24 @ 12:03 by Yuly Crespo RN) Smoking Status: Never smoker second hand exposure: No alcohol intake: never current occupational status: retired Travel in the last 8 weeks: None household members: spouse housing: house current occupational exposures/hazards: No Review of Systems Review of Systems Review of systems:: pertinent systems reviewed and negative unless documented below Exam Data for Last 24 hours Vital signs and Labs for Last 24 Hours: Temp Pulse Resp BP Pulse Ox O2 Del Method 98 F 80 18 157/96 H 98 Room Air 04/14/24 11:44 04/14/24 12:00 04/14/24 11:44 04/14/24 11:44 04/14/24 09:54 04/14/24 11:44 Laboratory Results - last 24 hr 04/14/24 09:03: WBC 8.2, RBC 5.23, Hgb 16.4, Hct 49.5, MCV 94.7 H, MCH 31.4 H, MCHC 33.2, RDW 14.0, Plt Count 327, MPV 7.9, Neut % (Auto) 57.3, Lymph % (Auto) 34.7, [place] % (Auto) 5.6, Eos % (Auto) 1.4, Baso % (Auto) 1.0, Neut # (Auto) 4.7, Lymph # (Auto) 2.8, [place] # (Auto) 0.5, Eos # (Auto) 0.1, Baso # (Auto) 0.1, PT 10.5, INR 0.97, APTT 29.6, Sodium 140, Potassium 4.0, Chloride 103, Carbon Dioxide 28, Anion Gap 13.0, BUN 14, Creatinine 1.00, Estimated GFR 74, Est GFR ( Amer) 89, Glucose 130 H, Calcium 9.4, Magnesium 1.8, Total Bilirubin 0.4, AST 38, ALT 23, Alkaline Phosphatase 86, Troponin I < 0.01, NT-Pro-B Natriuret Pep 1630 H, Total Protein 9.6 H, Albumin 4.6, Globulin 5.0 H, Albumin/Globulin Ratio 0.9 L, TSH 2.46, Thyroxine (T4) 10.2 04/14/24 12:30: Troponin I < 0.01 I & O for Last 24 hours: Intake & Output 04/11/24 04/12/24 04/13/24 04/14/24 23:59 23:59 23:59 23:59 Weight 113.398 kg *Routine HEENT Exam Head: Present other Eye: Present other ENT: Present other *Routine Respiratory Exam Respiratory: Present other *Routine Cardiovascular Exam Cardiovascular: Present other *Routine Abdominal Exam Abdominal: Present other *Routine Rectal Exam Rectal:: other *Routine Genitalia Exam Genitalia:: deferred Meds Home Medications and Allergies Home Medications Medication Instructions Recorded Confirmed Type coenzyme Q10 100 mg capsule 100 mg PO DAILY #30 caps 01/18/24 04/14/24 Rx sertraline 50 mg tablet 50 mg PO DAILY 90 days #90 tabs 02/16/24 04/14/24 Rx apixaban 5 mg tablet (Eliquis) 5 mg PO BID 30 days #60 tabs 04/14/24 Rx aspirin 81 mg tablet,delayed 81 mg PO DAILY 04/14/24 04/14/24 History release diltiazem HCl 60 mg tablet 60 mg PO TID 30 days #90 tabs 04/14/24 Rx New Prescriptions to Start Prescriptions: apixaban [Eliquis] Cassi Casillas diltiazem HCl Cassi Casillas Allergies Allergy/AdvReac Type Severity Reaction Status Date / Time atorvastatin AdvReac Muscle Pain Verified 04/14/24 12:27 rosuvastatin AdvReac Muscle Pain Verified 04/14/24 12:27 Hospital Course Hospital Course Hospital Course: Patient is a 68-year-old male with past medical history of atrial fibrillation who presented to hospital tachycardia. Patient was sent from cardiology office to the emergency department, with the recommendation for possible cardioversion. Patient was admitted to the hospital as rate controlled. On arrival to the floor patient was then recommended by cardiology to be discharged. At time of my evaluation patient did not have chest pain shortness of breath nausea vomiting diarrhea constipation dysuria fevers and chills. Patient appears rate controlled. Assessment and plan A-fib with RVR/atrial flutter Patient is currently rate controlled, patient will be discharged on aspirin Cardizem 60 3 times daily immediate-release, Eliquis twice daily Patient to follow-up with cardiology office as outpatient Patient verbalized understanding and agreed Discharge plan patient was not examined Results Data Completed and Pending Labs on day of discharge: Labs from last 24 hours 04/14/24 04/14/24 12:30 09:03 WBC 8.2 RBC 5.23 Hgb 16.4 Hct 49.5 MCV 94.7 H MCH 31.4 H MCHC 33.2 RDW 14.0 Plt Count 327 MPV 7.9 Neut % (Auto) 57.3 Lymph % (Auto) 34.7 [place] % (Auto) 5.6 Eos % (Auto) 1.4 Baso % (Auto) 1.0 Neut # (Auto) 4.7 Lymph # (Auto) 2.8 [place] # (Auto) 0.5 Eos # (Auto) 0.1 Baso # (Auto) 0.1 PT 10.5 INR 0.97 APTT 29.6 Sodium 140 Potassium 4.0 Chloride 103 Carbon Dioxide 28 Anion Gap 13.0 BUN 14 Creatinine 1.00 Estimated GFR 74 Est GFR ( Amer) 89 Glucose 130 H Calcium 9.4 Magnesium 1.8 Total Bilirubin 0.4 AST 38 ALT 23 Alkaline Phosphatase 86 Troponin I < 0.01 < 0.01 NT-Pro-B Natriuret Pep 1630 H Total Protein 9.6 H Albumin 4.6 Globulin 5.0 H Albumin/Globulin Ratio 0.9 L TSH 2.46 Thyroxine (T4) 10.2 DS: Diagnosis Discharge Diagnosis (1) Atrial fibrillation with RVR: Status: Acute Code(s): I48.91 - Unspecified atrial fibrillation (2) CAD (coronary artery disease): Status: Chronic Code(s): I25.10 - Atherosclerotic heart disease of [place] coronary artery without angina pectoris Qualifiers: Associated angina: without angina Coronary Disease-Associated Artery/Lesion type: [place] artery [place] vs. transplanted heart: [place] heart Qualified Code(s): I25.10 - Atherosclerotic heart disease of [place] coronary artery without angina pectoris (3) HLD (hyperlipidemia): Status: Chronic Code(s): E78.5 - Hyperlipidemia, unspecified Qualifiers: Hyperlipidemia type: mixed hyperlipidemia Qualified Code(s): E78.2 - Mixed hyperlipidemia (4) HTN (hypertension): Status: Acute Code(s): I10 - Essential (primary) hypertension Qualifiers: Hypertension type: unspecified Qualified Code(s): I10 - Essential (primary) hypertension Discharge Plan Disposition Patient Disposition: Home, Self-Care Condition: Good Follow up Plan Follow up with: Kristal Padilla APRN [Nurse Practitioner] - 1 week Prescriptions/Medication Reconciliation: New Eliquis 5 mg Tablet 5 mg PO BID 30 Days Qty: 60 0RF diltiazem HCl 60 mg Tablet 60 mg PO TID 30 Days Qty: 90 0RF Continued coenzyme Q10 100 mg capsule 100 mg PO DAILY Qty: 30 11RF sertraline 50 mg tablet 50 mg PO DAILY 90 Days Qty: 90 1RF aspirin 81 mg Tablet,Delayed Release (Dr/Ec) 81 mg PO DAILY Problem Reconciliation Problems Reviewed?: Yes Patient Discharge Instructions ACTIVITY: Continue current activity DIET: continue same diet Providers Primary Care Provider: Susanne Gaston Admit Provider: Cassi Casillas Attending Provider: Cassi Casillas
--- NOTE | 2024-04-14 14:26 | HMH.PHAINT1 ---
Pharmacy Intervention Comments: DISCHARGE MEDICATION COUNSELING PROVIDED. DISCUSSED THE FOLLOWING NEW MEDICATIONS: -DILTIAZEM (FOR BLOOD PRESSURE/HEART RATE, THREE TIMES DAILY, DIZZINESS, LIGHTHEADEDNESS POSSIBLE, LOWER LIMB SWELLING POSSIBLE) -ELIQUIS (BLOOD THINNER, TWICE DAILY, BLEED/BRUISE RISK/LOCATION VS APPEARANCE, BUMP HEAD = GO TO ER TO RULE OUT HEAD BLEED) PATIENT VERBALIZED NO QUESTIONS AT THIS TIME.
== END 2024-04-14 14:05 | disposition home or self-care (01) ==
LOC: ER 11:03 → 2ND 11:12 → OB 06-01 07:41
PROVIDERS: Emergency Medicine; Admitting Provider Internal Medicine; Emergency Provider Internal Medicine; PCP Nurse Practitioner; Visit Provider Internal Medicine
DX: I48.91 Unspecified atrial fibrillation (principal); I48.92 Unspecified atrial flutter; I11.9 Hypertensive heart disease without heart failure; I25.119 Atherosclerotic heart disease of native coronary artery with unspecified angina pectoris; E78.5 Hyperlipidemia, unspecified; I49.3 Ventricular premature depolarization; I44.4 Left anterior fascicular block
CPT/HCPCS: 36415; 71045; 80053; 83735; 83880; 84436; 84443; 84484; 85025; 85610; 85730; 93005; 96365; 96375; 96376; 99285; G0378; J7120

== ENCOUNTER 2024-05-05 10:21 | Outpatient (CLI) | payer MEDICARE, OTHER, SELFPAY ==
--- NOTE | 2024-05-05 | CA_ITS ---
APPROVED REPORT Exam: Pharmacologic Technologist: Radha Orozco, Ht: 5 ft 11 in Wt: 191 lbs BSA: 2.07 m2 HR: 64 bpm BP: 171/92 mmHg Rhythm: NSR, LEFT AXIS DEVIATON, OLD INFERIOR WI, CANNOT R/O OLD ANTERIOR WI Indications: Dyspnea, CAD Medical History Medical History: HTN, Hyperlipidemia Medications: Aspirin,,,,, Sertraline,,,,, Apixaban,,,,, Coenzyme Q10,,,,, DilTiazem HCI,,,,, Allergies: ATORVASTATIN, ROSUVASTATIN Cardiac Risk Factors: HTN, Hyperlipidemia Stress Test Details Test: LEXISCAN HR Resting HR: 65 bpm Max Heart Rate (APMHR): 149 bpm Max HR Achieved: 94 bpm Target HR (85% APMHR): 127 bpm % of APMHR: 63 Recovery HR: 84 bpm BP Resting BP: 171/92 mmHg Max BP: 187/100 mmHg Recovery BP: 187.0/100.0 mmHg ECG Resting ECG: NSR, LEFT AXIS DEVIATION, OLD INFERIOR WI, CANNOT R/O OLD ANTERIOR WI Stress ECG: NO SIGNIFICANT ST CHANGES Arrhythmia: FREQUENT PVCS Clinical Exercise duration: 04:01 min Highest Stage Achieved: Stress ECG Conclusion PT HAD HEAD DISCOMFORT NO CHEST PAIN FREQUENT PVCS NO SIGNIFICANT ST CHANGES UNREMARKABLE LEXISCAN STRESS Test Summary REST 04:43 . . 65 . 171/ 92 . . Stage 1 01:00 . . 83 . . . . Stage 2 01:00 . . 92 . 173/ 89 . . Stage 3 01:00 . . 87 . 180/ 90 . . Stage 4 01:00 . . 84 . . . . Stage 4 01:01 . . 84 . . . Stop exercise at 04:01 RECOVERY 01:00 . . 78 . 182/ 83 . . RECOVERY 02:00 . . 79 . 183/ 91 . . RECOVERY 03:00 . . 78 . 187/100 . . RECOVERY 03:21 . . 73 . 187/100 . . Electronically signed by : Tia Mejia MD 05/09/2024 11:55:44
--- NOTE | 2024-05-05 10:21 | CA_ITS ---
APPROVED REPORT EXAM: Comprehensive 2D, Doppler, and color-flow Echocardiogram [employer] Construction Supervisor: Vannesa High CRT Ht: 6 ft 1 in Wt: 191lbs BSA: 2.11 BP: 178/94 mmHg Indications: Abnormal ECG, Chest Pain, Shortness of Breath, Atrial Fibrillation, Hyperlipidemia, Hypertension/HDD, STENTS, COPD TDE LUNG INTERFERENCE 2D Dimensions LA Volume 36.80 mL LA Volume Index 17.00 mL/m2 (M/F) 16-34 M-Mode Dimensions RVDd 3.46 cm (0.9-2.6) LA Diam 3.62 cm (1.9-4.0) LVDd 4.92 cm (3.5-5.7) LVDs 2.35 cm (3.5-5.7) IVSd 1.25 cm (0.6-1.1) PWd 1.11 cm (0.6-1.1) EF (Teich) 83.20% FS 52.20% EDV (Teich) 113.90 mL TAPSE 2.56 (<1.7) ESV (Teich) 19.10 mL LV Diastology E Decel Time 133 (160-240 msec) E/A Ratio 0.90 MED A' 12.70 cm/s LAT A' 12.00 cm/s Aortic Valve AO Peak GR. 8.70 mmHg Mitral Valve MV A Velocity 82.0 (40-130 cm/s) E/A Ratio 0.90 Tricuspid Valve TR P. Velocity 250.00 cm/s RAP Estimate 10.00 mmHg RVSP 34.90 mmHg Left Ventricle The left ventricle is normal size. The left ventricular systolic function is normal. The left ventricular ejection fraction is within the normal range. Proximal septal thickening is noted. There is normal LV segmental wall motion. The left ventricular diastolic function is normal. LVEF is 55%. Right Ventricle The right ventricle is mildly dilated. The right ventricular systolic function is normal. Atria The left atrium size is normal. The right atrium size is normal. There is no Doppler evidence of interatrial shunt. Aortic Valve The aortic valve is mildly thickened. There is no aortic valvular stenosis. Trace aortic regurgitation. Mitral Valve The mitral valve is normal in structure. No evidence of mitral valve stenosis. Trace mitral regurgitation. Tricuspid Valve The tricuspid valve leaflets are thin and pliable. Mild tricuspid regurgitation. RVSP is 25-30 mmHg. Pulmonic Valve The pulmonary valve is normal in structure. Trace pulmonic regurgitation. Great Vessels The aortic root is normal in size. The ascending aorta is not well-visualized. IVC is normal in size and collapses >50% with inspiration. Pericardium There is no pericardial effusion. Other Information Study Quality: Adequate Conclusion Normal biventricular systolic function. Mild RV dilation. Mild TR. RVSP 25-30 mmHg. Electronically signed by : Tia Mejia MD 05/07/2024 23:20:56
--- NOTE | 2024-05-05 10:57 | NM_ITS ---
APPROVED REPORT Exam: Nuclear Stress Test Indication: soa..palpitations..fatigue Patient Location: Outpatient Stress Tech: Radha Orozco NM Tech:Junie Sutherland DONATOBrandon RT(R)(N) Ht: 6 ft 0 in Wt: 186 lbs HR: 65 bpm BP: 171/92 mmHg BSA: 2.07 m2 Rhythm: NSR TID: 1.06 History: soa..palpitations..fatigue Procedure: Patient received 0.4 mg of intravenous Lexiscan, resting heart rate 65 bpm, resting blood pressure 171/92 mmHg, with Lexiscan maximum heart rate achieved was 94 bpm which is 85 % of the maximum predicted heart rate and blood pressure was 187/100 mmHg. With Lexiscan, patient denied any complaint of chest pain. Cardiac Stress and Resting SPECT Images: Cardiac Stress and Resting SPECT images were obtained using technetium 99m Myoview 30.5 mCi stress and 10.47 mCi at rest. Resting and stress imaging in supine position, moderate, and prone positions demonstrate a large sized, moderate, fixed perfusion defect in the inferior LV wall from the base and extending distally towards the inferoapical region. Gated imaging demonstrates mild reduction in global LV systolic function. There is moderate hypokinesis of the basal inferior LV wall. LVEF is calculated at 45%. Conclusion: Large sized, moderate, fixed perfusion defect in the inferior LV wall from the base and extending distally towards the inferoapical region. Gated imaging demonstrates mild reduction in global LV systolic function. There is moderate hypokinesis of the basal inferior LV wall. LVEF is calculated at 45%. Electronically signed by : Tia Mejia MD 05/09/2024 11:58:04
[2024-05-05] MEDS: ISOTOPE MYOVIEW (PER STUDY) 1 DOSE IV (13:41)
[2024-05-05] MEDS: REGADENOSON 0.4MG/5ML SYRINGE 0.4 MG IV (13:41)
[2024-05-05] MEDS: SODIUM CHLORIDE 0.9% 10ML SYR (RAD ONLY) 10 ML IV ×2 (13:41)
== END 2024-05-05 23:59 | disposition home or self-care (01) ==
LOC: RT 10:21
PROVIDERS: PCP Nurse Practitioner; Visit Provider Nurse Practitioner Family
DX: I48.0 Paroxysmal atrial fibrillation (principal); I11.9 Hypertensive heart disease without heart failure; I25.10 Atherosclerotic heart disease of native coronary artery without angina pectoris; I49.3 Ventricular premature depolarization; R94.31 Abnormal electrocardiogram [ECG] [EKG]; R06.00 Dyspnea, unspecified; E78.2 Mixed hyperlipidemia
CPT/HCPCS: 78452; 93017; 93018; 93306; A9502; J2785

== ENCOUNTER 2024-05-20 08:05 | Outpatient (CLI) | payer MEDICARE, OTHER, SELFPAY ==
[2024-05-20 08:26] LABS: PHA INR Fingerstick 1.2 (0.9-1.1)
== END 2024-05-20 08:27 ==
LOC: ACC 08:07
PROVIDERS: PCP Nurse Practitioner; Visit Provider Physician Assistant
DX: I48.91 Unspecified atrial fibrillation (principal); Z79.01 Long term (current) use of anticoagulants
CPT/HCPCS: 85610; G0463

== ENCOUNTER 2024-05-20 19:06 | Emergency (ER) | payer MEDICARE, OTHER, SELFPAY ==
[2024-05-20 19:07] VITALS: BP 178/94; PULSE 73; RESP 24; TEMP 36.4; O2SAT 100; BMI 25.0
[2024-05-20 19:27] VITALS: BP 188/94; PULSE 66; RESP 16; TEMP 36.8; O2SAT 91
[2024-05-20] MEDS: ONDANSETRON 4MG/2ML VIAL 4 MG IV (19:36)
--- NOTE | 2024-05-20 19:47 | CT_ITS ---
PROCEDURE INFORMATION: Exam: CTA Abdomen and Pelvis With Contrast Exam date and time: 05/20/2024 8:39 PM Age: 69 years old Clinical indication: Abdominal pain; Acute; Additional info: Concern for mesenteric ischemia. Severe llq pain TECHNIQUE: Imaging protocol: Computed tomographic angiography of the abdomen and pelvis with contrast. Exam focused on the arteries. 3D rendering (Not supervised by radiologist): MIP and/or 3D reconstructed images were created by the technologist. Radiation optimization: All CT scans at this facility use at least one of these dose optimization techniques: automated exposure control; mA and/or kV adjustment per patient size (includes targeted exams where dose is matched to clinical indication); or iterative reconstruction. Contrast material: ISOVUE; Contrast volume: 100 ml; Contrast route: INTRAVENOUS (IV); COMPARISON: CR XR CHEST PORTABLE 14/04/2024 09:29 FINDINGS: Lungs: Mild centrilobular emphysema. Mild scarring and atelectasis in the lower lungs. Aorta: Mild atherosclerotic disease of the abdominal aorta. Celiac trunk and mesenteric arteries: No occlusion or significant stenosis. 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 Right iliac arteries: No occlusion or significant stenosis. Left iliac arteries: No occlusion or significant stenosis. Liver: No mass. Gallbladder and biliary ducts: Unremarkable. No calcified stones. No ductal dilation. Pancreas: Unremarkable. No mass. No ductal dilation. Spleen: Unremarkable. No splenomegaly. Adrenal glands: Unremarkable. No mass. Kidneys and ureters: Left hydronephrosis secondary to a 2 mm calculus in the proximal ureter. Low attenuation renal lesions measuring up to 2.7 cm in diameter are incompletely characterized, but are likely cysts. No followup imaging is warranted. Stomach and bowel: Unremarkable. No obstruction. No mucosal thickening. Appendix: Unremarkable appendix. Intraperitoneal space: Unremarkable. No free air. No significant fluid collection. Lymph nodes: Unremarkable. No enlarged lymph nodes. Urinary bladder: Unremarkable. No mass. Reproductive: Moderate prostate enlargement. Bones/joints: No acute fracture. Soft tissues: Tiny fat containing umbilical hernia. Postsurgical changes of the anterior abdominal wall. Other findings: Stigmata of old granulomatous disease. IMPRESSION: Left hydronephrosis secondary to a 2 mm calculus in the proximal ureter.
--- NOTE | 2024-05-20 19:47 | HMH.EDGENADL ---
Discharge Plan Disposition Patient Disposition: Home, Self-Care Prescriptions Prescriptions: New ketorolac 10 mg tablet 10 mg PO Q8H PRN (Reason: pain) 5 Days Qty: 14 0RF cefdinir 300 mg capsule 300 mg PO BID 7 Days Qty: 14 0RF No Action coenzyme Q10 100 mg capsule 100 mg PO DAILY Qty: 30 11RF warfarin 5 mg tablet 5 mg PO DAILY Qty: 30 6RF sertraline 50 mg tablet 50 mg PO DAILY 90 Days Qty: 90 1RF diltiazem HCl 240 mg capsule,extended release 24hr 240 mg PO DAILY Qty: 30 3RF aspirin 81 mg Tablet,Delayed Release (Dr/Ec) 81 mg PO DAILY Referrals Follow up/Referrals: Susanne Gaston APRN [Primary Care Provider] - See instructions Activity Restrictions/Add. Instructions Additional Instructions/Restrictions: Call your family doctor to establish care for this visit to the emergency department and schedule follow-up within 48 hours to ensure improvement. If you have any worsening of your condition or any other concerning signs or symptoms, return to the emergency department or your primary care doctor for further evaluation. Antibiotics twice daily for 7 days. Toradol as needed every 8 hours Clinical Impressions Clinical Impression: Calcium ureterolithiasis, Acute UTI Instructions Patient Instructions: DI for Acute Abdominal Pain Discharge ED Provider: Roman Ramachandran General Adult HPI General Chief complaint: Abdominal Pain Stated complaint: left side pain, vomiting Time Seen by Provider: 05/20/24 19:29 Mode of Arrival: Ambulatory Source of Information: Patient and Spouse Limitations: No Limitations Description of Symptoms (Recalled from ER Triage Doc. by RN): Pt. presented to the ED with c/o left LLQ pain/hip pain. the pain started around 1700tonight. also c/o vomiting. History of Present Illness HPI narrative: Please note that above description of symptoms, in this electronic medical record under categorization of recalled from ER triage doctor by RN are reflective of an initial nursing assessment, however, is not reflective of my full history and physical exam that was personally taken and clarified. Consequentially, this preceding description of symptoms, which may include the patient's categorized chief complaint in the EMR, do not reflect my personal clinical impression, and the ultimate description of history of present illness and patient stated complaints should be deferred to this section of the note. Unless stated otherwise or congruent with this section of the note, additional signs, symptoms, or incongruence should be interpreted as inaccurate with my clinical impression. Related Data Home Medications Medication Instructions Recorded Confirmed aspirin 81 mg tablet,delayed 81 mg PO DAILY 04/14/24 05/11/24 release Previous Rx's Medication Instructions Recorded coenzyme Q10 100 mg capsule 100 mg PO DAILY #30 caps 01/18/24 sertraline 50 mg tablet 50 mg PO DAILY 90 days #90 tabs 02/16/24 diltiazem HCl 240 mg 240 mg PO DAILY #30 caps 04/20/24 capsule,extended release 24 hr warfarin 5 mg tablet 5 mg PO DAILY #30 tabs 05/11/24 cefdinir 300 mg capsule 300 mg PO BID 7 days #14 caps 05/20/24 ketorolac 10 mg tablet 10 mg PO Q8H PRN pain 5 days #14 05/20/24 tabs Allergies Allergy/AdvReac Type Severity Reaction Status Date / Time atorvastatin AdvReac Muscle Pain Verified 05/11/24 08:47 rosuvastatin AdvReac Muscle Pain Verified 05/11/24 08:47 PFSH [facility] Disclaimer: The information contained in this section may have been updated after the patient was seen, as this information can be updated by other users. Medical History Angina pectoris Paroxysmal A-fib Atrial fibrillation with RVR Statin intolerance IFG (impaired fasting glucose) Anxiety Cardiac arrhythmia Left knee pain [place] of foot Diastolic dysfunction HTN (hypertension) History of skin cancer CAD (coronary artery disease) PVC (premature ventricular contraction) HLD (hyperlipidemia) Atypical angina Abnormal electrocardiography Abnormal cardiovascular stress test Dyspnea Surgical History History of heart artery stent History of hernia repair Family History Other Cancer Social History Smoking Status: Never smoker second hand exposure: No alcohol intake: never current occupational status: retired Travel in the last 8 weeks: None household members: spouse housing: house current occupational exposures/hazards: No ROS Obtained: Yes All systems reviewed & no additional complaints except as documented Physical Exam General General appearance: alert and in distress (Secondary to pain) Head Head exam: atraumatic and normocephalic Eye Eye exam: Present normal appearance, PERRL and EOMI ENT ENT exam: Present mucous membranes moist Neck Neck exam: Present normal inspection, full ROM and trachea midline Respiratory Respiratory exam: Present normal lung sounds bilaterally; Absent respiratory distress, wheezes, stridor, accessory muscle use or prolonged expiratory phase Cardiovascular Cardiovascular exam: Present normal rhythm and tachycardia Abdominal Exam Abdominal exam: Present soft, tenderness and guarding; Absent distention, rebound or rigidity Abdominal tenderness: Present LLQ and severe Extremities Exam Extremities exam: Absent edema Neurological Exam Neurological exam: Present alert, oriented X3, CN II-XII intact and normal gait; Absent motor sensory deficit Skin Skin exam: Present warm and dry; Absent diaphoresis or erythema Medical Decision Making Medical Records Medical records reviewed: Yes I reviewed the patient's medical records. Griffin Inquiry Pt receiving controlled substance: No Griffin was queried for this patient: No Vital Signs: 05/20/24 19:07 05/20/24 19:27 Temperature 97.5 F L 98.3 F Temperature Source Oral Oral Pulse Rate 66 Pulse Rate [Right Radial] 73 Respiratory Rate 24 16 Blood Pressure 188/94 H Blood Pressure [Left Arm] 178/94 H Blood Pressure Mean [Left Arm] 122 Blood Pressure Source [Left Arm] Automatic Cuff Blood Pressure Position [Left Arm] Supine 02 Sat by Pulse Oximetry 100 91 L Oxygen Delivery Method Room Air Room Air Lab Data Lab Results 05/20/24 19:15: WBC 10.6, RBC 4.62, Hgb 14.6, Hct 42.6, MCV 92.2, MCH 31.6 H, MCHC 34.3, RDW 14.0, Plt Count 292, MPV 8.1, Neut % (Auto) 68.1, Lymph % (Auto) 25.6, [place] % (Auto) 4.8, Eos % (Auto) 1.0, Baso % (Auto) 0.5, Neut # (Auto) 7.2, Lymph # (Auto) 2.7, [place] # (Auto) 0.5, Eos # (Auto) 0.1, Baso # (Auto) 0.1, PT 16.0 H, INR 1.49 H, APTT 33.2 H, Sodium 138, Potassium 3.8, Chloride 106, Carbon Dioxide 26, Anion Gap 9.8, BUN 20, Creatinine 1.00, Estimated Creat Clear 83, Estimated GFR 74, Est GFR ( Amer) 89, Glucose 130 H, Lactate 2.2 H, Calcium 9.2, Total Bilirubin 0.4, AST 39, ALT 24, Alkaline Phosphatase 87, Total Protein 8.7 H, Albumin 4.4, Globulin 4.3 H, Albumin/Globulin Ratio 1.0 L, Lipase 106 05/20/24 21:05: Urine Color Yellow, Urine Appearance Clear, Urine pH 7.5, Ur Specific [place] 1.015, Urine Protein Negative, Urine Glucose (UA) Negative, Urine Ketones Trace, Urine Blood 3+, Urine Nitrate Negative, Urine Bilirubin Negative, Urine Urobilinogen 0.2, Ur Leukocyte Esterase Negative, Urine RBC 50-100, Urine WBC 20-50, Ur Squamous Epith Cells None, Urine Bacteria 1+ 05/20/24 19:15 05/20/24 19:15 Orders (Tests/Meds): ED MEDICATIONS Generic Name Dose Route Start Last Admin Trade Name Freq PRN Reason Stop Dose Admin Ceftriaxone Sodium 1 gm/ 50 mls @ 100 mls/hr 05/20/24 22:20 05/20/24 22:37 Sodium Chloride IV 05/20/24 22:49 100 mls/hr ONCE ONE Administration Sodium Chloride 10 ml 05/20/24 20:48 05/20/24 20:49 Sodium Chloride 0.9% 10ml Syr (Rad Only) IV 06/19/24 20:47 10 ml NEEDED PRN Administration Maintain IV Site Discontinued Medications Generic Name Dose Route Start Last Admin Trade Name Freq PRN Reason Stop Dose Admin Acetaminophen 1,000 mg 05/20/24 19:49 05/20/24 20:05 Acetaminophen 1,000mg/100ml Vial IV 05/20/24 19:50 1,000 mg ONCE ONE Administration Droperidol 5 mg 05/20/24 21:02 05/20/24 21:13 Droperidol 5mg/2ml Vial IV 05/20/24 21:03 5 mg ONCE ONE Administration Hydromorphone HCl 0.5 mg 05/20/24 19:49 05/20/24 20:05 Hydromorphone 2mg/Ml Syringe IV 05/20/24 19:50 0.5 mg ONCE ONE Administration Lactated Ringer's 1,000 mls @ 999 mls/hr 05/20/24 19:54 05/20/24 20:04 Lactated Ringer's 1000 Ml Bag IV 05/20/24 20:54 999 mls/hr .Q1H1M ONE Administration Iopamidol 100 ml 05/20/24 20:48 05/20/24 20:50 Iopamidol-370 (76%);100ml Bottle IV 05/20/24 20:49 100 ml ONCE ONE Administration Ketorolac Tromethamine 15 mg 05/20/24 19:49 05/20/24 20:05 Ketorolac 30mg/Ml Vial IV 05/20/24 19:50 15 mg ONCE ONE Administration Ondansetron HCl 4 mg 05/20/24 19:34 05/20/24 19:36 Ondansetron 4mg/2ml Vial IV 05/20/24 19:35 4 mg ONCE ONE Administration Sodium Chloride 50 ml 05/20/24 20:48 05/20/24 20:50 0.9 % Sodium Chloride 50 Ml Vial IV 05/20/24 20:49 50 ml ONCE ONE Administration ORDERS Category Date Time Status CT angio abdomen pelvis Stat Cat Scan 05/20/24 19:47 Completed CBC w/Auto Diff [Complete Blood Count Auto Diff] Stat Lab 05/20/24 19:15 Completed CMP [Comprehensive Metabolic Panel] Stat Lab 05/20/24 19:15 Completed Lactic Acid Stat Lab 05/20/24 19:15 Completed Lipase Stat Lab 05/20/24 19:15 Completed PT INR [Prothrombin Time INR] Stat Lab 05/20/24 19:15 Completed PTT [Activated Partial Thrombo Time] Stat Lab 05/20/24 19:15 Completed UA [Urinalysis and Microscopic] Stat Lab 05/20/24 21:05 Completed Urine Culture Stat Micro 05/20/24 21:05 Received Medical Decision Narrative: 69-year-old male history of A-fib recently started on warfarin, hypertension, hyperlipidemia, COPD, CAD presenting with severe and acute onset left lower quadrant pain. Started just for arrival, he was just sitting down when it happened. Left lower quadrant, does not radiate, severe in intensity. Associate with nausea without vomiting. No overlying skin changes, fevers, chills. Last bowel movement today was normal for him, no dysuria or hematuria. History was obtained via conversation with patient. On arrival, patient hemodynamically stable, alert, oriented x4, appropriate, GCS 15, moving all extremities spontaneously, pupils equal and reactive to light. Full physical exam performed and significant for 69-year-old male who is in acute distress secondary to pain. Left lower quadrant guarding. No overlying skin changes. No flank tenderness. Differential includes PUD, gastritis, enteritis, gastroenteritis, pancreatitis, SBO, colitis, diverticulitis, nephrolithiasis, UTI, cholecystitis, choledocholithiasis, appendicitis, torsion, hepatitis, aortic pathology, mesenteric ischemia among others. Independent interpretation of EKG sinus rhythm 65 beats a minute without ST or T wave changes concerning for acute ischemia DC 164, QRS 110, QTc 434. Leftward axis. patient was given Toradol, acetaminophen, Dilaudid for symptomatic management and correction of underlying abnormalities. Workup independently interpreted and significant for no white count. INR subtherapeutic at 1.49. Chemistry nonactionable, lactate 2.2. On reevaluation, patient still in significant pain, retching. He was given [address] angio of the abdomen pelvis demonstrates left-sided kidney stone 2 to 3 mm with mild hydroureter without significant hydronephrosis. See radiology read for full review of final results. On reevaluation, patient feeling much better. Toradol sent to pharmacy. Because patient's UA has bacteria without squamous cells, out of abundance of concern, sent home with cefdinir because patient at baseline without signs or symptoms of clinical decompensation, deemed appropriate for discharge. Results were relayed to patient who voiced understanding and were agreeable to outpatient management and follow up. I discussed my clinical impression with patient and answered all questions. At this time, the evidence for any other entities in the differential is insufficient to warrant any further testing or ED observation. This was explained as well. Advisory was given that persistent or worsening symptoms require further evaluation. I confirmed the understanding of this discussion.. Audit Mgr disclaimer Much of this encounter note is an electronic air commodore spoken language to printed text. Electronic air commodore of the spoken language may permit errors. Although I have reviewed the note, some errors may still exist. Critical Care Critical Care Time Critical Care Time: No
[2024-05-20 19:56] LABS: Basophils # 0.1 K/mm3 (0-0.2); Basophils % 0.5 % (0.1-2.0); Eosinophils # 0.1 K/mm3 (0.0-0.4); Hematocrit 42.6 % (42.0-52.0); Hemoglobin 14.6 g/dL (14.1-18.0); Lymphocytes # 2.7 K/mm3 (0.7-4.5); Lymphocytes % 25.6 % (10-50); Mean Corpuscular HGB Conc 34.3 g/dL (31.8-35.4); Mean Corpuscular Hemoglobin 31.6 pg (27.0-31.2); Mean Corpuscular Volume 92.2 fl (80-94); Mean Platelet Volume 8.1 fl (7.4-10.4); Monocytes # 0.5 K/mm3 (0.1-1.0); Monocytes % 4.8 % (1.7-9.3); Neutrophils # 7.2 K/mm3 (1.8-7.8); Neutrophils % 68.1 % (37.0-80.0); Platelet Count 292 K/mm3 (142-424); Red Blood Count 4.62 M/mm3 (4.60-6.20); White Blood Count 10.6 K/mm3 (4.8-10.8)
[2024-05-20 20:02] LABS: Alanine Aminotransferase 24 U/L (12-78); Albumin Level 4.4 g/dl (3.5-5.0); Alkaline Phosphatase 87 U/L (38-126); Anion Gap 9.8 mEq/L (5-15); Aspartate Amino Transferase 39 U/L (17-59); Bilirubin,Total 0.4 mg/dl (0.2-1.3); Blood Urea Nitrogen 20 mg/dl (9-20); Calcium 9.2 mg/dl (8.4-10.2); Carbon Dioxide 26 mmol/L (22.0-30.0); Chloride 106 mmol/L (98-107); Creatinine Clearance Estimated 83 mL/min (50-200); Estimated Glomerular Filt Rate 74 ml/min (>60); GFR (African American) 89 ML/MIN (>60); Globulin 4.3 g/dL (1.3-3.2); Glucose 130 mg/dl (74-100); Lipase 106 U/L (23-300); Potassium 3.8 mmoL/L (3.5-5.1); Sodium 138 mmol/L (136-145); Total Protein,Serum 8.7 g/dl (6.3-8.2)
[2024-05-20] MEDS: LACTATED RINGERS 1000ML 1,000 ML 999 ML IV (20:04)
[2024-05-20 20:05] LABS: Lactic Acid 2.2 mmol/L (0.7-2.1)
[2024-05-20] MEDS: KETOROLAC 30MG/ML VIAL 15 MG IV (20:05)
[2024-05-20] MEDS: ACETAMINOPHEN 1,000MG/100ML VIAL 1000 MG IV (20:05)
[2024-05-20] MEDS: HYDROMORPHONE 2MG/ML SYRINGE 0.5 MG IV (20:05)
[2024-05-20 20:12] LABS: Activated Partial Thrombo Time 33.2 seconds (22.8-30.6); INR 1.49 (0.9-1.1)
--- NOTE | 2024-05-20 20:33 | PC.NURSE ---
patient to CT
[2024-05-20] MEDS: SODIUM CHLORIDE 0.9% 10ML SYR (RAD ONLY) 10 ML IV (20:49)
[2024-05-20] MEDS: IOPAMIDOL-370 (76%);100ML BOTTLE 100 ML IV (20:50)
[2024-05-20] MEDS: 0.9 % SODIUM CHLORIDE 50 ML VIAL IV (20:50)
--- NOTE | 2024-05-20 21:09 | ECG_ITS ---
APPROVED REPORT Exam: Resting ECG HR:65 bpm ECG Measurements Heart Rate 65 AXES NH 164 P 68 QRSd 110 QRS -66 QT 422 T 5 QTc 434 Conclusion SINUS RHYTHM Q waves in inferior leads likely from previous [place] Electronically signed by : JUSTINE HUFF, 05/20/2024 23:09:22
[2024-05-20] MEDS: droPERidol 5MG/2ML VIAL 5 MG IV (21:13)
[2024-05-20 21:14] LABS: Microscopic, Urine URINE MICROSCOPIC (MICROSCOPIC)
[2024-05-20 21:23] LABS: Appearance,Urine CLEAR (Clear); Bilirubin,Urine Negative (Negative); Blood, Urine 3+ (Negative); Color,Urine YELLOW (Yellow); Glucose,Urine (UA) Negative (Negative); Ketones,Urine TRACE (Negative); Leukocyte Esterase,Urine Negative (Negative); Nitrate,Urine Negative (Negative); PH,Urine 7.5 (5.0-8.5); Protein,Urine Negative (Negative); Specific Gravity, Urine 1.015 (1.005-1.030); Urobilinogen,Urine 0.2 EU/dl (0.2)
[2024-05-20 21:55] LABS: WBC,Urine 20-50 #/hpf (0-3)
[2024-05-20 21:56] LABS: RBC,Urine 50-100 #/hpf (0-3)
[2024-05-20 21:57] LABS: Bacteria,Urine 1+ /lpf
[2024-05-20] MEDS: CEFTRIAXONE SODIUM 1 GM in 0.9 % SODIUM CHLORIDE 50 ML IV (22:37)
[2024-05-20 22:57] VITALS: BP 141/88; PULSE 72; RESP 15; TEMP 36.5; O2SAT 99
[2024-05-20 23:52] LABS: Reflex Lactic Add Lactic Reflex
== END 2024-05-20 22:57 | disposition home or self-care (01) ==
PROVIDERS: Emergency Provider Emergency Medicine; PCP Nurse Practitioner
DX: N13.0 Hydronephrosis with ureteropelvic junction obstruction (principal); N39.0 Urinary tract infection, site not specified; R10.32 Left lower quadrant pain; I48.0 Paroxysmal atrial fibrillation; E78.5 Hyperlipidemia, unspecified; Z95.5 Presence of coronary angioplasty implant and graft; Z79.01 Long term (current) use of anticoagulants; I11.9 Hypertensive heart disease without heart failure; I25.119 Atherosclerotic heart disease of native coronary artery with unspecified angina pectoris; R11.2 Nausea with vomiting, unspecified
CPT/HCPCS: 74174; 80053; 81001; 83605; 83690; 85025; 85610; 85730; 87086; 93005; 96361; 96365; 96375; 99285; G0463; J0131; J0696; J1170; J1790; J1885; J2405; J7120; Q9967

== ENCOUNTER 2024-05-30 09:13 | Outpatient (CLI) | payer MEDICARE, OTHER, SELFPAY ==
[2024-07-08 10:09] LABS: Ammonium acid urate 0; Ca oxalate dihydrate 40; Calcium bilirubinate 0; Calcium carbonate 0; Calcium phosphate 0; Cholesterol 0; Composition PERCENTAGE; Magnesium ammon phos 0; Size 3X2; Sodium acid urate 0; Uric acid dihydrate 0
== END 2024-05-30 23:59 | disposition home or self-care (01) ==
LOC: LAB 09:14
PROVIDERS: PCP Nurse Practitioner; Visit Provider Urology
DX: N20.1 Calculus of ureter (principal)
CPT/HCPCS: 82370

== ENCOUNTER 2024-06-02 08:03 | Outpatient (CLI) | payer MEDICARE, OTHER, SELFPAY | END 2024-06-02 14:11 | LOC: ACC 08:03 | PROVIDERS: PCP Nurse Practitioner; Visit Provider Physician Assistant | DX: Z79.01 Long term (current) use of anticoagulants (principal); I48.91 Unspecified atrial fibrillation | CPT/HCPCS: 85610; 99211; G0463 ==

== ENCOUNTER 2024-06-23 07:41 | Outpatient (CLI) | payer MEDICARE, OTHER, SELFPAY ==
[2024-06-23 09:30] LABS: PHA INR Fingerstick 1.8 (0.9-1.1)
== END 2024-06-23 09:46 ==
LOC: ACC 07:43
PROVIDERS: PCP Nurse Practitioner; Visit Provider Physician Assistant
DX: Z79.01 Long term (current) use of anticoagulants (principal); I48.91 Unspecified atrial fibrillation
CPT/HCPCS: 85610; 99211; G0463

== ENCOUNTER 2024-07-21 07:43 | Outpatient (CLI) | payer MEDICARE, OTHER, SELFPAY ==
[2024-07-21 08:29] LABS: PHA INR Fingerstick 1.6 (0.9-1.1)
== END 2024-07-21 08:31 ==
LOC: ACC 07:44
PROVIDERS: PCP Nurse Practitioner; Visit Provider Physician Assistant
DX: Z79.01 Long term (current) use of anticoagulants (principal); I48.91 Unspecified atrial fibrillation
CPT/HCPCS: 85610; 99211; G0463

== ENCOUNTER 2024-07-26 08:56 | Outpatient (POV) | payer MEDICARE, OTHER, SELFPAY | END 2024-07-26 23:59 | disposition home or self-care (01) | LOC: SC 08:56 | PROVIDERS: PCP Nurse Practitioner; Visit Provider Dermatology | DX: Z00.00 Encounter for general adult medical examination without abnormal findings (principal) ==

== ENCOUNTER 2024-08-18 07:56 | Outpatient (CLI) | payer MEDICARE, OTHER, SELFPAY ==
[2024-08-18 09:32] LABS: PHA INR Fingerstick 1.7 (0.9-1.1)
== END 2024-08-18 09:42 ==
LOC: ACC 07:58
PROVIDERS: PCP Nurse Practitioner; Visit Provider Physician Assistant
DX: Z79.01 Long term (current) use of anticoagulants (principal); I48.91 Unspecified atrial fibrillation
CPT/HCPCS: 85610; 99211; G0463

== ENCOUNTER 2024-09-08 07:45 | Outpatient (CLI) | payer MEDICARE, OTHER, SELFPAY ==
[2024-09-08 13:47] LABS: PHA INR Fingerstick 2.8 (0.9-1.1)
== END 2024-09-08 14:11 ==
LOC: ACC 07:47
PROVIDERS: PCP Nurse Practitioner; Visit Provider Physician Assistant
DX: Z79.01 Long term (current) use of anticoagulants (principal); I48.91 Unspecified atrial fibrillation
CPT/HCPCS: 85610; 99211; G0463

== ENCOUNTER 2024-09-22 08:36 | Outpatient (CLI) | payer MEDICARE, OTHER, SELFPAY ==
[2024-09-22 12:13] LABS: PHA INR Fingerstick 2.4 (0.9-1.1)
== END 2024-09-22 12:17 ==
LOC: ACC 08:38
PROVIDERS: PCP Nurse Practitioner; Visit Provider Physician Assistant
DX: Z79.01 Long term (current) use of anticoagulants (principal); I48.91 Unspecified atrial fibrillation
CPT/HCPCS: 85610; 99211; G0463

== ENCOUNTER 2024-10-19 08:35 | Outpatient (CLI) | payer MEDICARE, OTHER, SELFPAY ==
[2024-10-19 10:56] LABS: PHA INR Fingerstick 2.1 (0.9-1.1)
== END 2024-10-19 10:58 ==
LOC: ACC 08:37
PROVIDERS: PCP Nurse Practitioner; Visit Provider Physician Assistant
DX: Z79.01 Long term (current) use of anticoagulants (principal); I48.91 Unspecified atrial fibrillation
CPT/HCPCS: 85610; 99211; G0463

== ENCOUNTER 2024-11-28 09:10 | Outpatient (CLI) | payer MEDICARE, OTHER, SELFPAY ==
[2024-11-28 10:43] LABS: PHA INR Fingerstick 2.2 (0.9-1.1)
== END 2024-11-28 10:47 ==
LOC: ACC 09:12
PROVIDERS: PCP Nurse Practitioner; Visit Provider Physician Assistant
DX: Z79.01 Long term (current) use of anticoagulants (principal); I48.91 Unspecified atrial fibrillation
CPT/HCPCS: 85610; 99211; G0463

== ENCOUNTER 2025-01-09 08:36 | Outpatient (CLI) | payer MEDICARE, OTHER, SELFPAY ==
[2025-01-09 14:13] LABS: PHA INR Fingerstick 2.2 (0.9-1.1)
== END 2025-01-09 14:15 ==
PROVIDERS: PCP Nurse Practitioner; Visit Provider Physician Assistant
DX: Z79.01 Long term (current) use of anticoagulants (principal); I48.91 Unspecified atrial fibrillation
CPT/HCPCS: 85610; 99211; G0463

== ENCOUNTER 2025-02-02 13:50 | Outpatient (CLI) | payer MEDICARE, OTHER, SELFPAY | END 2025-02-02 23:59 | disposition home or self-care (01) | LOC: LAB.DROPOF 02-03 11:50 | PROVIDERS: PCP Nurse Practitioner; Visit Provider Nurse Practitioner | DX: R30.0 Dysuria (principal) | CPT/HCPCS: 87086 ==

== ENCOUNTER 2025-02-20 08:35 | Outpatient (CLI) | payer MEDICARE, OTHER, SELFPAY ==
[2025-02-20 13:14] LABS: PHA INR Fingerstick 2.1 (0.9-1.1)
--- OUTSIDE RECORDS SUMMARY | 2025-02-23 20:08 | XMS_ITS ---
Author Organization Unknown TREATMENT PLAN Planned [facility] Start Date Provider Encounter for Check-up [id number] [facility]
== END 2025-02-20 13:24 ==
LOC: ACC 08:36
PROVIDERS: PCP Nurse Practitioner; Visit Provider Physician Assistant
DX: Z79.01 Long term (current) use of anticoagulants (principal); I48.91 Unspecified atrial fibrillation
CPT/HCPCS: 85610; 99211; G0463

== ENCOUNTER 2025-04-03 08:32 | Outpatient (CLI) | payer MEDICARE, OTHER, SELFPAY ==
[2025-04-03 10:06] LABS: PHA INR Fingerstick 2.7 (0.9-1.1)
== END 2025-04-03 10:09 ==
LOC: ACC 08:33
PROVIDERS: PCP Nurse Practitioner; Visit Provider Physician Assistant
DX: Z79.01 Long term (current) use of anticoagulants (principal); I48.91 Unspecified atrial fibrillation
CPT/HCPCS: 85610; 99211; G0463

== ENCOUNTER 2025-04-17 09:04 | Outpatient (CLI) | payer MEDICARE, OTHER, SELFPAY ==
[2025-04-17 18:32] LABS: Basophils % 0.3 % (0.1-2.0); Eosinophils % 0.6 % (0.1-12.0); Hematocrit 41.9 % (42.0-52.0); Hemoglobin 14.1 g/dL (14.1-18.0); Immature Granulocytes # 0 10^3uL; Immature Granulocytes % 0 %; Lymphocytes # 1.6 K/mm3 (0.7-4.5); Lymphocytes % 51.9 % (10-50); Mean Corpuscular HGB Conc 33.7 g/dL (31.8-35.4); Mean Corpuscular Hemoglobin 31.9 pg (27.0-31.2); Mean Corpuscular Volume 94.8 fl (80-94); Mean Platelet Volume 9.5 fl (7.4-10.4); Monocytes # 0.1 K/mm3 (0.1-1.0); Monocytes % 2.2 % (1.7-9.3); Neutrophils # 1.4 K/mm3 (1.8-7.8); Nucleated Red Blood Cells # 0 10^3/uL; Nucleated Red Blood Cells % 0 %; Platelet Count 225 K/mm3 (142-424); Red Blood Count 4.42 M/mm3 (4.60-6.20); Red Cell Distribution Width 13.3 % (11.5-17.5); Red Cell Distribution Width-SD 46.5 fL; White Blood Count 3.1 K/mm3 (4.8-10.8)
[2025-04-17 18:58] LABS: Alanine Aminotransferase 20 U/L (12-78); Albumin Level 4.3 g/dl (3.5-5.0); Albumin/Globulin Ratio 1.1 (1.1-1.8); Alkaline Phosphatase 69 U/L (38-126); Anion Gap 9.3 mEq/L (5-15); Aspartate Amino Transferase 30 U/L (17-59); Bilirubin,Total 0.3 mg/dl (0.2-1.3); Blood Urea Nitrogen 16 mg/dl (9-20); Calcium 8.7 mg/dl (8.4-10.2); Carbon Dioxide 30 mmol/L (22.0-30.0); Chloride 103 mmol/L (98-107); Cholesterol 223 mg/dl (140-200); Estimated Glomerular Filt Rate 83 ml/min (>60); GFR (African American) 101 ML/MIN (>60); Globulin 3.9 g/dL (1.3-3.2); Glucose 104 mg/dl (74-100); HDL Cholesterol 37 mg/dl (40-60); Potassium 4.3 mmoL/L (3.5-5.1); Sodium 138 mmol/L (136-145); Total Protein,Serum 8.2 g/dl (6.3-8.2); Triglycerides 94 mg/dl (30-150); VLDL Cholesterol 19 mg/dL (0-40)
[2025-04-17 18:59] LABS: Creatinine,Urine Random 187 mg/dL (Not Estab.)
[2025-04-17 19:09] LABS: Direct LDL Cholesterol 146.25 mg/dL (100-129)
[2025-04-17 19:11] LABS: Hemoglobin A1C 5.3 % (4.0-6.0)
[2025-04-17 19:31] LABS: Prostate Specific Ag Screen 1.7 ng/ml (0.0-4.0); Thyroid Stimulating Hormone 1.58 uIU/mL (0.465-4.68)
[2025-04-17 19:50] LABS: Vitamin B12 196 pg/mL (239-931)
== END 2025-04-17 23:59 | disposition home or self-care (01) ==
LOC: LAB.DROPOF 04-18 13:41
PROVIDERS: PCP Nurse Practitioner; Visit Provider Nurse Practitioner
DX: E78.2 Mixed hyperlipidemia (principal); I48.0 Paroxysmal atrial fibrillation; I10 Essential (primary) hypertension; I25.10 Atherosclerotic heart disease of native coronary artery without angina pectoris; R73.01 Impaired fasting glucose; Z78.9 Other specified health status; Z12.5 Encounter for screening for malignant neoplasm of prostate
CPT/HCPCS: 80053; 80061; 82043; 82570; 82607; 83036; 84443; 85025; G0103

== ENCOUNTER 2025-05-15 08:34 | Outpatient (CLI) | payer MEDICARE, OTHER, SELFPAY ==
--- OUTSIDE RECORDS SUMMARY | 2025-05-15 08:37 | XMS_ITS | Clinical Summary ---
Author Organization [facility] Address [address] [place] [phone] Phone Care Team Providers Care Marketing Area Manager Name Role Phone Romero Billingsley MD, [place] Primary Care Provider + Allergies No known active allergies Medications Aspirin (BABY ASPIRIN) 81 mg Take by mouth. Active Family History Medical History Relation Name Comments Heart Disease Father High Blood Pressure Father Cancer Mother Relation Name Status Comments Father Mother Social History Tobacco Use Types Packs/Day Years Used Date Smoking Tobacco: Never Sex and Gender Information Value Date Recorded Sex Assigned at Not on file Legal Sex Male 1:17 AM EDT Gender Identity Not on file Sexual Orientation Not on file Obstetrics History Last Filed Vital Signs Vital Sign Reading Time Taken Comments Blood Pressure 160/100 12/24/2010 7:59 AM EST Pulse 81 12/24/2010 7:59 AM EST Temperature 36.8 C (98.2 F) 12/24/2010 7:59 AM EST Respiratory Rate 16 12/24/2010 7:59 AM EST Oxygen Saturation 96% 12/24/2010 7:59 AM EST Inhaled Oxygen Concentration - - Weight 97.8 kg (215 lb 9.6 oz) 12/24/2010 7:59 A M EST Height 182.9 cm (6') 12/24/2010 7:59 AM EST Body Mass Index 29.24 12/24/2010 7:59 AM EST Plan of Treatment Health Maintenance Due Date Last Done Comments Annual Wellness Exam 1958 Hepatitis C Screening 1971 DTaP/TDaP/Td (1 - Tdap) 1972 Cologuard 1998 Colon Cancer Screening 1998 Colonoscopy 1998 FIT 1998 Sigmoidoscopy 1998 Virtual Colonography 1998 Pneumococcal Vaccine 50+ (1 of 1 - PCV) 2003 Zoster (1 of 2) 2003 COVID-19 Vaccine (1 - 2023-2 5 season) 2024 Influenza Vaccine (Season Ended) 2025 Hepatitis B Vaccine Aged Out No longe r eligible based on patient's age to complete this topic Meningococcal B Vaccine Aged Out No l onger eligible based on patient's age to complete this topic Insurance [id number] [id number] Care Teams Marketing Area Manager Relationship Specialty Start Date End Date Gabriele Jasso MD [address] [place] [phone] PCP - General 12/20/10
[2025-05-15 09:51] LABS: PHA INR Fingerstick 1.7 (0.9-1.1)
== END 2025-05-15 09:55 ==
LOC: ACC 08:35
PROVIDERS: PCP Nurse Practitioner; Visit Provider Physician Assistant
DX: I48.91 Unspecified atrial fibrillation (principal); Z79.01 Long term (current) use of anticoagulants
CPT/HCPCS: 85610; 99211; G0463

== ENCOUNTER 2025-06-26 08:31 | Outpatient (CLI) | payer MEDICARE, OTHER, SELFPAY ==
--- OUTSIDE RECORDS SUMMARY | 2025-06-26 08:37 | XMS_ITS | Clinical Summary ---
Author Organization [facility] Address [address] [place] [phone] Phone Care Team Providers Care Learning Officer Name Role Phone Romero Billingsley MD, [place] Primary Care Provider + Allergies No known [...] - 2023-2 5 season) 2024 Influenza Vaccine (#1) 2025 Hepatitis B Vaccine Aged Out No longe r eligible based on patient's age to complete this topic Meningococcal B Vaccine Aged Out No l onger eligible based on patient's age to complete this topic Insurance [id number] [id number] Care Teams Learning Officer Relationship Specialty Start Date End Date Gabriele Jasso MD [address] [place] [phone] PCP - General 12/20/10
[2025-06-26 09:04] LABS: PHA INR Fingerstick 2.4 (0.9-1.1)
== END 2025-06-26 09:06 ==
LOC: ACC 08:31
PROVIDERS: PCP Nurse Practitioner; Visit Provider Physician Assistant
DX: Z79.01 Long term (current) use of anticoagulants (principal)
CPT/HCPCS: 85610; 99211; G0463

== ENCOUNTER 2025-08-07 08:33 | Outpatient (CLI) | payer MEDICARE, OTHER, SELFPAY ==
--- OUTSIDE RECORDS SUMMARY | 2025-08-07 09:02 | XMS_ITS | Clinical Summary ---
Author Organization [facility] Address [address] [place] [phone] Phone Care Team Providers Care Orthopedic Dentist Name Role Phone Romero Billingsley MD, [place] Primary Care Provider + Allergies No known [...] COVID-19 Vaccine (1 - 2023-2 5 season) 2025 Influenza Vaccine (#1) 2025 Hepatitis B Vaccine Aged Out No longe r eligible based on patient's age to complete this topic Meningococcal B Vaccine Aged Out No l onger eligible based on patient's age to complete this topic Insurance [id number] [id number] Care Teams Orthopedic Dentist Relationship Specialty Start Date End Date Gabriele Jasso MD [address] [place] [phone] PCP - General 12/20/10
[2025-08-07 09:22] LABS: PHA INR Fingerstick 1.6 (0.9-1.1)
== END 2025-08-07 09:23 ==
LOC: ACC 08:35
PROVIDERS: PCP Nurse Practitioner; Visit Provider Physician Assistant
DX: Z79.01 Long term (current) use of anticoagulants (principal)
CPT/HCPCS: 85610; 99211; G0463

== ENCOUNTER 2025-09-04 09:06 | Outpatient (CLI) | payer MEDICARE, OTHER, SELFPAY ==
--- OUTSIDE RECORDS SUMMARY | 2025-09-04 09:31 | XMS_ITS | Clinical Summary ---
Author Organization [facility] Address [address] [place] [phone] Phone Care Team Providers Care Security Control Center Operator Name Role Phone Romero Billingsley MD, [place] Primary Care Provider + Allergies No known [...] on file Sexual Orientation Not on file Last Filed Vital Signs Vital Sign Reading [...] of 2) 2003 COVID-19 Vaccine (1 - 2024-2 6 season) 2025 Influenza Vaccine (#1) 2025 Hepatitis B Vaccine Aged Out No longe r eligible based on patient's age to complete this topic Meningococcal B Vaccine Aged Out No l onger eligible based on patient's age to complete this topic Insurance [id number] [id number] Care Teams Security Control Center Operator Relationship Specialty Start Date End Date Gabriele Jasso MD [address] [place] [phone] PCP - General 12/20/10
[2025-09-04 11:43] LABS: PHA INR Fingerstick 2.4 (0.9-1.1)
== END 2025-09-04 11:46 ==
LOC: ACC 09:07
PROVIDERS: PCP Nurse Practitioner Family; Visit Provider Physician Assistant
DX: Z79.01 Long term (current) use of anticoagulants (principal)
CPT/HCPCS: 85610; 99211; G0463

== ENCOUNTER 2025-10-02 09:02 | Outpatient (CLI) | payer MEDICARE, OTHER, SELFPAY ==
[2025-10-02 10:08] LABS: PHA INR Fingerstick 2.2 (0.9-1.1)
== END 2025-10-02 10:09 ==
LOC: ACC 09:06
PROVIDERS: PCP Nurse Practitioner; Visit Provider Physician Assistant
DX: Z79.01 Long term (current) use of anticoagulants (principal)
CPT/HCPCS: 85610; 99211; G0463

== ENCOUNTER 2025-11-13 08:35 | Outpatient (CLI) | payer MEDICARE, OTHER, SELFPAY ==
--- OUTSIDE RECORDS SUMMARY | 2025-11-13 08:40 | XMS_ITS | Clinical Summary ---
Author Organization [facility] Address [address] [place] [phone] Phone Care Team Providers Care Transition Rn Name Role Phone Romero Billingsley MD, [place] Primary Care Provider + Allergies No known [...] patient's age to complete this topic Insurance [id number] [id number] Care Teams Transition Rn Relationship Specialty Start Date End Date Gabriele Jasso MD [address] [place] [phone] PCP - General 12/20/10
[2025-11-13 09:00] LABS: PHA INR Fingerstick 2.1 (0.9-1.1)
== END 2025-11-13 09:01 ==
LOC: ACC 08:36
PROVIDERS: PCP Nurse Practitioner; Visit Provider Physician Assistant
DX: Z79.01 Long term (current) use of anticoagulants (principal)
CPT/HCPCS: 85610; 99211; G0463